=== PATIENT | female | born 2000 | race Caucasian/White ===

== ENCOUNTER 2022-12-11 09:00 | Outpatient (RCR) | payer BC, SELFPAY ==
--- NOTE | 2022-06-26 08:10 | URNOTE ---
Received request for prior auth for Infliximab ([id number]). This is approved 07/02/2022- as ordered by provider. Ref #[id number]
[2022-07-05 09:31] VITALS: BP 121/77; PULSE 105; RESP 16; TEMP 36; O2SAT 97
[2022-07-05] MEDS: METHYLPREDNISOLONE SOD SUCC 62.5 MG/ML (125) 60 MG IVP (10:30)
--- NOTE | 2022-08-15 16:54 | A.ONCPRONO_ITS ---
[facility] Provider Note Clinic Note Narrative: Treatment Plan: Infliximab Ms. Garcia follows with Dr. Marcus Patton MD of [facility], for medical management of Ulcerative Colitis. We have received orders for Ms. Garcia to continue to receive infliximab (remicade) infusions at 10mg/kg every 7 weeks. I have reviewed and signed these orders and have entered orders into a treatment plan for Ms. Garcia. Cycles are every 8 weeks, however, Ms. Garcia may receive these infusions every 7 weeks as per original orders received. Ms. Garcia's orders will need to be renewed after 11/25/22.
[2022-08-22 12:17] VITALS: BP 118/70; PULSE 102; RESP 16; TEMP 36.6; O2SAT 96
[2022-08-22] MEDS: METHYLPREDNISOLONE SOD SUCC 62.5 MG/ML (125) 60 MG IVP (12:55)
--- NOTE | 2022-11-27 09:44 | ONC.NURNOTE ---
Patricia phoned in today to set up an appt for Remicade She was due this week at home in [place], however she tested postive yesterday 11/26/22 for COVID and started Paxlovid yesterday, and was told that she needs to wait one week before receiving Remicade symptoms started 5 days ago, and she tested positive on day 4 She has a VV tomorrow with GI MD returns to [place] Thursday 11/30 Plan: Clerk Cashier requested a written release from GI to administer Remicade next week- Fri (12/04) or later, office fax given to Patricia Gomez will phone back after GI visit to set up appt
--- NOTE | 2022-12-03 09:13 | PC.NURSE ---
Addendum entered by Yelena Gonzales RN 12/04/22 08:58: [employer]er called patient following direction from Infection Prevention: Patricia Garcia- May return 10 days after symptom onset or positive test date.? May return after 12/06/2022.? Must be fever free and symptoms improved. Patient states she never had fevers, she experienced cough, back pain, fatigue, and runny nose. All symptoms are gone, but the runny nose - which has improved. Therefore patient able to be seen after 12/06/2022. Patient scheduled 12/11/2022 due to her schedule and infusion availability. Original Note: Pt called and LM asking to schedule her Remicade infusion. RN reviewed pt's chart and RN notes. Pt tested positive for COVID on 11/26/22. Delayed her Remicade infusion in [place]. Started Paxlovid 11/26/2022. Met virtually with AJAY HORTON in [place] on 11/28/2022. [facility] has not received documentation from AJAY HORTON with ok to treat. This RN called Mil MOSS today and LM asking for this documentation chico so we can get Patricia scheduled. Called pt with this update. Pt's number: [phone] Mil MOSS number: [phone] Will call pt to schedule as soon as we get permission to treat.
[2022-12-11 09:05] VITALS: BP 108/72; PULSE 95; RESP 16; TEMP 36.4; O2SAT 97
[2022-12-11] MEDS: METHYLPREDNISOLONE SOD SUCC 62.5 MG/ML (125) 60 MG IVP (09:40)
[2022-12-11] MEDS: 0.9 % SODIUM CHLORIDE 250 ml 250 ML 35 ML IV (09:40)
--- NOTE | 2022-12-27 14:03 | PC.NURSE ---
Received updated orders for Patricia's Remicade infusions. Christelle Weiner APRN reviewed orders and requested lab results from November appt. This request was called in to [facility]. This RN received a call back today stating that pt's last MD visit was virtual and that labs were ordered but never drawn. RN requested these lab orders so they could be done here prior to next infusion. Lab orders received via fax. Called pt to schedule and she stated that she, in fact, DID have labs drawn in [place] prior to coming back to [place] on 11/30/2022. RN called back and LM with Ashlee at [facility] to request the results or to call if they don't see them in their system. Will continue to follow up.
== END 2023-01-01 23:59 | disposition home or self-care (01) ==
LOC: CCIC 09:00
PROVIDERS: PCP Clinical Nurse Specialist; Referring Provider Clinical Nurse Specialist; Visit Provider Clinical Nurse Specialist
DX: K51.90 Ulcerative colitis, unspecified, without complications (principal)
CPT/HCPCS: 96376; 96413; 96415; J2930; J7050

== ENCOUNTER 2023-05-20 19:02 | Emergency (ER) | payer BC, SELFPAY ==
[2023-05-20 19:24] VITALS: BP 131/77; PULSE 109; RESP 16; TEMP 36.9; O2SAT 99; BMI 32.0
--- NOTE | 2023-05-20 21:09 | ED.GENADULT ---
HPI - General Adult General Time Seen by Provider: 21:09 Date Seen: 05/20/23 Chief complaint: Extremity Pain/Injury, Lower Stated complaint: Inflammation on legs Time Seen by Provider: 05/20/23 21:09 Source: patient and RN notes reviewed Mode of arrival: ambulatory Limitations: no limitations History of Present Illness HPI narrative: Marta is a very pleasant 22-year-old female with known ulcerative colitis, currently on Remicade infusion, history of erythema nodosum who comes to the emergency room for evaluation regarding leg pain and painful nodules on her lower extremities. Patient notes that she has had this previously but this is the most pain she has had with them. She denies any trauma to this area or any bites from her cat which she has at home. She has not had fever or chills. She denies nausea or vomiting. She has had occasional abdominal pain but no diarrhea or blood in her stools. There is no calf tenderness. She states she is rating her pain a 10/10. In the past she has had prednisone and had previously been on it from mid March until the week of April. She is unable to take oral NSAIDs but does agree she can take IV NSAIDs. Related Data Home Medications Medication Instructions Recorded Confirmed amitriptyline 50 mg tablet 50 mg PO DAILY 07/05/22 03/19/23 duloxetine 60 mg capsule,delayed 60 mg PO DAILY 07/05/22 03/19/23 release ferrous sulfate 325 mg (65 mg 325 mg PO DAILY 07/05/22 03/19/23 iron) tablet (FeroSul) norethindrone (contraceptive) 0.35 0.35 mg PO DAILY 07/05/22 03/19/23 mg tablet omeprazole 20 mg capsule,delayed 20 mg PO DAILY 07/05/22 03/19/23 release ondansetron 8 mg disintegrating 8 mg PO Q8H PRN nausea 07/05/22 03/19/23 tablet cetirizine 10 mg tablet (Aller-Brie) 10 mg PO DAILY PRN 12/11/22 03/19/23 cholecalciferol (vitamin D3) 50 50 mcg PO DAILY 12/11/22 03/19/23 mcg (2,000 unit) capsule fluticasone propionate 50 2 spray intranasal DAILY PRN 12/11/22 03/19/23 mcg/actuation nasal spray,suspension (Aller-Lorne) multivitamin 1 tab PO DAILY 12/11/22 03/19/23 acetaminophen 500 mg capsule 500 - 1,000 mg PO Q6H PRN 01/30/23 03/19/23 ibuprofen 200 mg tablet (Advil) 400 - 600 mg PO Q8H PRN 01/30/23 05/08/23 Allergies Allergy/AdvReac Type Severity Reaction Status Date / Time tree and shrub pollen Allergy Mild Verified 05/20/23 19:28 Review of Systems Status of ROS: Reports: 10 or more systems reviewed and unremarkable except as noted in History and below Const: Denies: fever or chills ENMT: Denies: throat swelling Cardio: Reports: swelling of feet/ankles; Denies: chest pain or shortness of breath with exertion Resp: Denies: shortness of breath or cough GI: Reports: abdominal pain; Denies: nausea, vomiting, diarrhea or blood in stool : Denies: painful urination Musculo: Reports: extremity pain; Denies: back pain Integ/Breast: Reports: redness, skin tenderness and skin swelling Neuro: Denies: headache Allergy/Immuno: Denies: throat swelling Exam Narrative: Exam Narrative: Marta is alert and oriented. Very intelligent and animated young woman. External ears eyes nose clear. Heart with regular rate and rhythm and lungs are clear. Abdomen soft and nontender. Examination of the lower extremity show 2 discrete areas of nodularity, erythema on the lower shins. No significant warmth to the touch. There is somewhat of a scaly surface over the large area measuring approximately 7.5 cm on the right lower carter just lateral to the tibia. On the left lower carter this area is approximately 8 cm in diameter. She is able to move her extremities. There is also areas of Band-Aids, superficial scratch on her right left foot without evidence of surrounding erythema. There is also a quarter-size bruise on her right lateral lower calf. Const: Vital Signs, click to edit/add: Vital Signs - 24 hr 05/20/23 19:24 Temperature 98.5 F Pulse Rate [Right Pulse Oximeter] 109 H Respiratory Rate 16 Blood Pressure [Ri ght Upper Arm] 131/77 Pulse Oximetry 99 Oxygen Delivery Me thod Room Air Documenting provider has reviewed patient's vital signs: yes Course Course ED Course: At this time differential diagnosis includes but is not limited to cellulitis, erythema nodosum, erythema multiforma I do believe this is erythema nodosum as patient has had this previously, has history of ulcerative colitis. At this time I would like to check baseline labs to include CBC, comprehensive panel, CRP as well as urinalysis. Patient receptive to the idea of normal saline IV with dexamethasone 4 mg and Toradol 15 mg IV. Patricia's father asked that we biopsy this area but this is not something that we would do in the emergency room. She is supposed to be set up for an appointment with her Dermatology. Will likely need to place her back on steroids.. Reevaluation(s) Reevaluation #1: Patient seems much improved after IV fluids, Toradol and dexamethasone Vital Signs Vital signs: Initial Vital Signs Temperature 98.5 F 05/20/23 19:24 Temperature Source Temporal Artery Scan 05/20/23 19:24 Pulse Rate 109 H 05/20/23 19:24 Pulse Rhythm Regular 05/20/23 19:24 Pulse Strength 3+ Normal 05/20/23 19:24 Respiratory Rate 16 05/20/23 19:24 Blood Pressure 131/77 05/20/23 19:24 Blood Pressure Mean 95 05/20/23 19:24 Blood Pressure Position Sitting 05/20/23 19:24 Pulse Oximetry 99 05/20/23 19:24 Oxygen Delivery Method Room Air 05/20/23 19:24 Vital Signs Temperature 98.5 F 05/20/23 19:24 Pulse Rate 109 H 05/20/23 19:24 Respiratory Rate 16 05/20/23 19:24 Blood Pressure 131/77 05/20/23 19:24 Pulse Oximetry 99 05/20/23 19:24 Oxygen Delivery Method Room Air 05/20/23 19:24 Temperature 98.5 F 05/20/23 19:24 Pulse Rate 109 H 05/20/23 19:24 Respiratory Rate 16 05/20/23 19:24 Blood Pressure 131/77 05/20/23 19:24 Pulse Oximetry 99 05/20/23 19:24 Oxygen Delivery Method Room Air 05/20/23 19:24 Medications Administered Medications: Discontinued Medications Generic Name Dose Route Start Last Admin Trade Name Freq PRN Reason Stop Dose Admin Dexamethasone 4 mg 05/20/23 21:24 05/20/23 21:49 Dexamethasone 4 Mg/Ml Vial IV 05/20/23 21:25 4 mg ONCE ONE Administration Sodium Chloride 1,000 mls @ 1,000 mls/hr 05/20/23 21:24 05/20/23 22:44 0.9 % Sodium Chloride 1000 Ml IV 05/20/23 22:23 Infused .Q1H JEROME Infusion Ketorolac Tromethamine 15 mg 05/20/23 21:24 05/20/23 21:49 Ketorolac 15 Mg/Ml Inj IVP 05/20/23 21:25 15 mg ONCE ONE Administration Medical Decision Making MDM Narrative Medical decision making narrative: 1. Erythema nodosum-patient has history of this in likely secondary or associated with ulcerative colitis. She is currently on Remicade every 7-8 weeks. She has been treated with prednisone in the past. She usually does a taper with that. Using previous prednisone dosing we will use 20 mg daily that she will start tomorrow. She already has this medication at home. I would have her follow-up with her GI specialist so that they can taper the dosing. She is also supposed to follow-up with dermatology. I would encourage her to get the appointment as soon as possible. I did state that we do not do biopsies here in the emergency room which her dad had requested. She is adamant that these are not in the area of where her CT has scratched her or bit her. She has no fever tonight white count is reassuring. 2. History of ulcerative colitis-no blood in stool in really no current flare at this time. 3. Disposition -home at this time. Recommend Tylenol as needed for discomfort. Recommend returning to the emergency room for worsening symptoms. Medical Records Medical records reviewed: Yes I reviewed the patient's medical records Lab Data Lab results reviewed: Yes I reviewed the patient's lab results Labs: Lab Results 05/20/23 Range/Units 21:40 WBC 9.32 (4.50-11.00) K/uL RBC 5.02 (4.00-5.20) m/uL Hgb 14.9 (12.0-16.0) gm/dL Hct 45.1 (33.0-51.0) % MCV 90 (80-100) fL MCH 30 (26-34) pg MCHC 33 (32-36) gm/dL RDW Coeff of Britta 12.3 (11.5-15.5) % Plt Count 252 (140-440) K/uL Neut % (Auto) 53.1 (42.0-72.0) % Lymph % (Auto) 36.7 (20-44) % Prairie % (Auto) 7.1 (0.0-11.0) % Eos % (Auto) 2.5 (0.0-7.0) % Baso % (Auto) 0.4 (0.0-3.0) % Neut # (Auto) 4.95 (1.7-7.0) K/uL Lymph # (Auto) 3.42 H (0.90-2.90) K/uL Prairie # (Auto) 0.70 (0.00-0.90) K/UL Eos # (Auto) 0.23 (0.00-0.50) K/uL Baso # (Auto) 0.04 (0.00-0.30) K/uL Abs Immat Gran (auto) 0.02 (0.00-0.30) K/uL Imm/Tot Granulo (auto) 0.2 % Sodium 139 (135-149) mmol/L Potassium 3.6 (3.6-5.1) mmol/L Chloride 104 (96-114) mmol/L Carbon Dioxide 25 (20-32) mmol/L Anion Gap 10 (7-15) mEq/L BUN 11 (5-24) mg/dL Creatinine 0.8 (0.5-1.5) mg/dL Estimated Creat Clear 97.57 Estimated GFR 105 ml/min Glucose 86 (60-115) mg/dL Calcium 9.1 (8.4-10.6) mg/dL Total Bilirubin 0.4 (0.1-1.5) mg/dL AST 19 (12-35) U/L ALT 10 (4-35) U/L Alkaline Phosphatase 101 (40-150) U/L C-Reactive Protein 1.0 (0.5-1.0) mg/dL Total Protein 8.0 (6.0-8.3) g/dL Albumin 4.5 (3.3-5.0) g/dL Discharge Plan Discharge Clinical Impression: Erythema nodosum Patient Disposition: Home, Self-Care Condition: Improved Additional Instructions: Start prednisone 20 mg daily tomorrow. Tylenol as needed for discomfort. Recommend follow-up with Dr. Wilcox for recheck. Return to the emergency room as needed. Prescriptions: No Action acetaminophen 500 mg capsule 500 - 1,000 mg PO Q6H PRN ibuprofen [Advil] 200 mg tablet 400 - 600 mg PO Q8H PRN amitriptyline 50 mg tablet 50 mg PO DAILY ondansetron 8 mg tablet,disintegrating 8 mg PO Q8H PRN (Reason: nausea) ferrous sulfate [FeroSul] 325 mg (65 mg iron) tablet 325 mg PO DAILY omeprazole 20 mg capsule,delayed release(DR/EC) 20 mg PO DAILY norethindrone (contraceptive) 0.35 mg tablet 0.35 mg PO DAILY duloxetine 60 mg capsule,delayed release(DR/EC) 60 mg PO DAILY cholecalciferol (vitamin D3) 50 mcg (2,000 unit) capsule 50 mcg PO DAILY multivitamin Tablet 1 tab PO DAILY fluticasone propionate [Aller-Lorne] 50 mcg/actuation spray,suspension 2 spray intranasal DAILY PRN Rx Instructions: administer into each nostril cetirizine [Aller-Brie] 10 mg tablet 10 mg PO DAILY PRN Follow Up/Referrals: Christelle Weiner APRN [Primary Care Provider] - Stand Alone [facility]: [facility] Inst[facility]
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
[2023-05-20] MEDS: dexAMETHasone 4 MG/ML VIAL IV (21:49)
[2023-05-20] MEDS: 0.9 % SODIUM CHLORIDE 1000 ml 1,000 ML IV (21:49)
[2023-05-20] MEDS: KETOROLAC 15 MG/ML inj IVP (21:49)
[2023-05-20 21:54] LABS: Basophils Absolute Auto 0.04 K/uL (0.00-0.30); Basophils Percent Auto 0.4 % (0.0-3.0); Eosinophils Absolute Auto 0.23 K/uL (0.00-0.50); Eosinophils Percent Auto 2.5 % (0.0-7.0); Hematocrit 45.1 % (33.0-51.0); Hemoglobin* 14.9 gm/dL (12.0-16.0); Immature Granulocytes Abs Auto 0.02 K/uL (0.00-0.30); Immature Granulocytes Pct Auto 0.2 %; Lymphocytes Absolute Auto 3.42 K/uL (0.90-2.90); Lymphocytes Percent Auto 36.7 % (20-44); Mean Corpuscular HGB Conc 33 gm/dL (32-36); Mean Corpuscular Hemoglobin 30 pg (26-34); Mean Corpuscular Volume 90 fL (80-100); Monocytes Percent Auto 7.1 % (0.0-11.0); Neutrophils Absolute Auto 4.95 K/uL (1.7-7.0); Neutrophils Percent Auto 53.1 % (42.0-72.0); Platelet Count* 252 K/uL (140-440); RDW Coefficient of Variation % 12.3 % (11.5-15.5); Red Blood Count 5.02 m/uL (4.00-5.20); White Blood Count* 9.32 K/uL (4.50-11.00)
[2023-05-20 21:56] LABS: Slide Review Reflex No
[2023-05-20 22:06] LABS: Albumin* 4.5 g/dL (3.3-5.0); Chloride* 104 mmol/L (96-114); Sodium* 139 mmol/L (135-149)
[2023-05-20 22:07] LABS: Potassium* 3.6 mmol/L (3.6-5.1)
[2023-05-20 22:09] LABS: Creatinine* 0.8 mg/dL (0.5-1.5); Est. Creatinine Clearance* 97.57; Estimated Glomerular Filt Rate 105 ml/min
[2023-05-20 22:10] LABS: Alanine Aminotransferase* 10 U/L (4-35); Alkaline Phosphatase* 101 U/L (40-150); Anion Gap 10 mEq/L (7-15); Aspartate Amino Transferase* 19 U/L (12-35); Bilirubin Total* 0.4 mg/dL (0.1-1.5); Blood Urea Nitrogen* 11 mg/dL (5-24); Calcium* 9.1 mg/dL (8.4-10.6); Carbon Dioxide* 25 mmol/L (20-32); Glucose* 86 mg/dL (60-115)
== END 2023-05-20 23:10 | disposition home or self-care (01) ==
PROVIDERS: Emergency Provider Family Medicine; PCP Clinical Nurse Specialist
DX: L52 Erythema nodosum (principal)
CPT/HCPCS: 36415; 80053; 85025; 86140; 96374; 96375; 99284; J1100; J1885; J7030

== ENCOUNTER 2023-06-27 13:00 | Outpatient (RCR) | payer BC, SELFPAY ==
[2023-01-30 11:20] VITALS: BP 110/72; PULSE 106; RESP 16; TEMP 36.2; O2SAT 96
[2023-01-30] MEDS: METHYLPREDNISOLONE SOD SUCC 40 MG/ML 60 MG IVP (11:45)
[2023-01-30] MEDS: 0.9 % SODIUM CHLORIDE 250 ml 250 ML 35 ML IV (11:45)
[2023-03-20 11:17] VITALS: BP 106/74; PULSE 111; RESP 16; TEMP 36.1; O2SAT 100
[2023-03-20] MEDS: METHYLPREDNISOLONE SOD SUCC 40 MG/ML 60 MG IVP (11:44)
[2023-03-20] MEDS: 0.9 % SODIUM CHLORIDE 250 ml 250 ML 35 ML IV (12:00)
[2023-05-08 09:05] VITALS: BP 110/77; PULSE 119; RESP 18; TEMP 36; O2SAT 96
[2023-05-08 09:29] LABS: Basophils Absolute Auto 0.04 K/uL (0.00-0.30); Basophils Percent Auto 0.4 % (0.0-3.0); Eosinophils Absolute Auto 0.16 K/uL (0.00-0.50); Eosinophils Percent Auto 1.5 % (0.0-7.0); Hematocrit 44.8 % (33.0-51.0); Hemoglobin* 14.8 gm/dL (12.0-16.0); Immature Granulocytes Abs Auto 0.01 K/uL (0.00-0.30); Immature Granulocytes Pct Auto 0.1 %; Lymphocytes Absolute Auto 2.32 K/uL (0.90-2.90); Lymphocytes Percent Auto 21.6 % (20-44); Mean Corpuscular HGB Conc 33 gm/dL (32-36); Mean Corpuscular Hemoglobin 30 pg (26-34); Mean Corpuscular Volume 89 fL (80-100); Monocytes Percent Auto 7.2 % (0.0-11.0); Neutrophils Absolute Auto 7.45 K/uL (1.7-7.0); Neutrophils Percent Auto 69.2 % (42.0-72.0); Platelet Count* 282 K/uL (140-440); RDW Coefficient of Variation % 12.3 % (11.5-15.5); Red Blood Count 5.02 m/uL (4.00-5.20); White Blood Count* 10.76 K/uL (4.50-11.00)
[2023-05-08] MEDS: 0.9 % SODIUM CHLORIDE 250 ml 250 ML 30 ML IV (09:40)
[2023-05-08] MEDS: METHYLPREDNISOLONE SOD SUCC 62.5 MG/ML (125) 60 MG IVP (09:40)
[2023-05-08 09:41] LABS: Slide Review Reflex No
[2023-05-08 09:42] LABS: Albumin* 4.2 g/dL (3.3-5.0); Chloride* 106 mmol/L (96-114)
[2023-05-08 09:43] LABS: Potassium* 3.9 mmol/L (3.6-5.1); Sodium* 138 mmol/L (135-149)
[2023-05-08 09:45] LABS: Alkaline Phosphatase* 120 U/L (40-150); Anion Gap 10 mEq/L (7-15); Aspartate Amino Transferase* 26 U/L (12-35); Bilirubin Total* 0.5 mg/dL (0.1-1.5); Carbon Dioxide* 22 mmol/L (20-32); Creatinine* 0.7 mg/dL (0.5-1.5); Estimated Glomerular Filt Rate 124 ml/min; Total Protein* 7.8 g/dL (6.0-8.3)
[2023-05-08 09:46] LABS: Alanine Aminotransferase* 17 U/L (4-35); Blood Urea Nitrogen* 9 mg/dL (5-24); Glucose* 103 mg/dL (60-115)
[2023-05-08 10:06] LABS: Erythrocyte SedimentationRate* 11 mm/hr (2-20)
--- NOTE | 2023-05-26 12:06 | PC.NURSE ---
Called pt today to check in after ER visit last week for LLE pain. This is not a new issue for Patricia but she states that she was in so much pain she cried which she never does as a result of physical pain. ER gave pt IV Toradol, IV steroids, and started a Prednisone burst. Pt states this will be for 5 weeks with her daily doses being 20mg, 20mg, 15mg, 10mg, 5mg then done per Dr. Wilcox. She is seeing dermatology this week on Friday. RN will call pt to check in later this week. Will also reach out to Dr. Wilcox to get ok to proceed with Remicade as scheduled on 06/27/2023. Support offered.
--- NOTE | 2023-06-17 14:17 | PC.NURSE ---
Addendum entered by Hortencia Temple RN 06/27/23 12:37: Called Dr. Wilcox's office today and spoke with an RN. Their notes reflect that Dr. Wilcox ok'd proceeding with treatment today given pt's recent issues as mentioned below. Original Note: Called pt today to check in prior to her next Remicade next week on 06/27/2023. Marta states that her skin erythema is better but still there. Marta saw a it security manager and was given a steroid injection into her leg and started on Plaquenil. She is also still on oral steroids which she states will end some time next week. RN called Dr. Wilcox to inquire about whether or not it is safe to proceed with treatment next week. Awaiting call back. Pt verbalized understanding.
[2023-06-27 13:01] VITALS: BP 109/68; PULSE 111; RESP 16; TEMP 36.9; O2SAT 95
[2023-06-27] MEDS: METHYLPREDNISOLONE SOD SUCC 62.5 MG/ML (125) 60 MG IVP (14:24)
[2023-06-27] MEDS: 0.9 % SODIUM CHLORIDE 250 ml 250 ML 50 ML IV (14:27)
[2023-06-27] MEDS: TUBING PRIMARY IV (14:46)
[2023-06-27] MEDS: INFLIXIMAB IV (14:46)
[2023-06-27] MEDS: [UNRECOGNIZED DRUG - OTHER] IV (14:46)
--- NOTE | 2023-06-27 16:32 | ONC.NURNOTE ---
Patient transferred to med/surg for remainder of infusion. Remicade infusing at 250cc/hr with 155cc left in bag. Report givenb to Diane SEARS charge nurse. Patient will need PIV out and set of ending vital signs
[2023-06-30 09:25] LABS: Infliximab Antibodies <20 ng/mL (<=19)
== END 2023-07-29 23:59 | disposition home or self-care (01) ==
LOC: CCIC 13:00
PROVIDERS: PCP Clinical Nurse Specialist; Referring Provider Clinical Nurse Specialist; Visit Provider Clinical Nurse Specialist
DX: K51.90 Ulcerative colitis, unspecified, without complications (principal)
CPT/HCPCS: 36415; 80053; 80230; 85025; 85651; 86140; 96376; 96413; 96415; J2920; J2930; J7050

== ENCOUNTER 2024-01-01 09:30 | Outpatient (RCR) | payer BC, SELFPAY ==
--- NOTE | 2023-08-12 12:00 | URNOTE ---
Addendum entered by Audra Fields RN 03/31/24 11:29: Remicade (Infliximab) (J1745). This is remains approved for [facility], provider Christelle Weiner, date range: 08/15/2023- 08/13/2024 as ordered by provider. Ref #[id number] per [facility] Rep. Guera Castaneda([phone]). Ref call#[id number] confirmed as pt has been seen since in [place], [place]. Original Note: Received request for prior auth for Remicade (Infliximab) (J1745). This is approved 08/15/2023- 08/13/2024 as ordered by provider. Ref #[id number].
[2023-08-15 10:58] VITALS: BP 105/72; PULSE 106; RESP 17; TEMP 36.9; O2SAT 97
[2023-08-15] MEDS: METHYLPREDNISOLONE SOD SUCC 62.5 MG/ML (125) 60 MG IVP (11:58)
--- NOTE | 2023-08-15 14:42 | ONC.NURNOTE ---
Based on pt's weight, discussed change in remicade dose with Christelle Weiner APRN. Pt aware and in agreement dose should be increased to 900mg based on weight.
--- NOTE | 2023-12-26 09:47 | ONC.NURNOTE ---
Pt called updating us she LM for her ordering provider's office, Dr. Jose Guadalupe Patton with [facility] and also a message for his PA. She notes their office is usually timely with their responses. Infliximab appt moved from 12/29 to 12/31 per pt request to allow for more processing time.
[2024-01-01] MEDS: METHYLPREDNISOLONE SOD SUCC 62.5 MG/ML (125) 60 MG IVP (10:25)
[2024-01-01] MEDS: 0.9 % SODIUM CHLORIDE 250 ml 250 ML 35 ML IV (10:25)
[2024-01-01 10:30] VITALS: BP 103/70; PULSE 97; RESP 16; TEMP 35.9; O2SAT 96
== END 2024-02-11 23:59 | disposition home or self-care (01) ==
LOC: CCIC 09:30
PROVIDERS: PCP Student in an Organized Health Care Education/Training Program; Referring Provider Student in an Organized Health Care Education/Training Program; Visit Provider Clinical Nurse Specialist
DX: K51.90 Ulcerative colitis, unspecified, without complications (principal)
CPT/HCPCS: 96376; 96413; 96415; J2919; J7050

== ENCOUNTER 2024-01-09 12:18 | Emergency (ER) | payer BC, SELFPAY ==
[2024-01-09 12:27] VITALS: BP 123/92; PULSE 98; RESP 16; TEMP 36.9; O2SAT 95; BMI 33.8
--- NOTE | 2024-01-09 13:00 | CRLHL7_ITS ---
For Patients: As a result of the Century Cures Act, medical imaging exams and procedure reports are released immediately into your electronic medical record. You may view this report before your referring provider. If you have questions, please contact your health care provider. INDICATION: Left lower extremity swelling and pain COMPARISON: None. TECHNIQUE: A compression venous ultrasound exam was performed of the left lower extremity using garg-scale imaging, color Doppler and spectral Doppler analysis. FINDINGS: Sonographic imaging of the left lower extremity demonstrates normal compressibility and color Doppler venous blood flow within the common femoral vein, deep femoral vein, and the proximal greater saphenous vein. Within the thigh, the femoral vein is patent and compressible. At a lower level, the popliteal and posterior tibial veins also show normal compressibility and color Doppler venous blood flow. Limited imaging of the contralateral groin demonstrates a normal spectral waveform and color Doppler venous blood flow within the right common femoral vein. IMPRESSION: Normal venous ultrasound exam. No evidence of deep vein thrombosis within the left lower extremity. Dictated by Jack Gaviria MD @ 01/09/2024 2:10:46 PM (Electronically Signed)
--- NOTE | 2024-01-09 13:02 | ED_ITS ---
HPI - General Adult General Date Seen: 01/09/24 Chief complaint: Unspecified Complaint, Adult Stated complaint: body aches, SOB upon exertion Time Seen by Provider: 01/09/24 12:20 Source: patient Mode of arrival: ambulatory Limitations: no limitations History of Present Illness HPI narrative: Patient is a 23-year-old female with history of ulcerative colitis, Adama- Danlos syndrome presenting to the emergency department for full body pain and shortness of breath with exertion. She states she symptoms higher chronic issue for her but have been worse for the past 5 days. She has been taking Tylenol at home with minimal improvement in her symptoms. She states usually this symptoms get better on their own but this episode has been lasting longer. She states at baseline she has a constant 2/10 pain and currently is a 10/10 pain. States that this pain in all her joints and she has chest pain when she takes deep breaths. She also feels like she is short of breath. She has no history of blood clots but does have a chronically swollen left lower extremity. She did sprain her ankle in that leg 2 weeks ago and last leg is more swollen than it normally is. Also states the leg is more painful than it normally is. Denies nausea, vomiting, fevers, chills, diarrhea, abdominal pain, headache, vision changes, lightheadedness, dizziness. Has had some episodes of diaphoresis. Is feeling fatigued. States she has been able to sleep much. Related Data Home Medications ?Medication ?Instructions ?Recorded ?Confirmed amitriptyline 50 mg tablet 50 mg PO DAILY 07/05/22 01/01/24 duloxetine 60 mg capsule,delayed 90 mg PO DAILY 07/05/22 01/01/24 release ferrous sulfate 325 mg (65 mg 325 mg PO DAILY 07/05/22 01/01/24 iron) tablet (FeroSul) norethindrone (contraceptive) 0.35 0.35 mg PO DAILY 07/05/22 01/01/24 mg tablet omeprazole 20 mg capsule,delayed 20 mg PO DAILY 07/05/22 01/01/24 release ondansetron 8 mg disintegrating 8 mg PO Q8H PRN nausea 07/05/22 01/01/24 tablet cetirizine 10 mg tablet (Aller-Brie) 10 mg PO DAILY PRN 12/11/22 01/01/24 cholecalciferol (vitamin D3) 50 50 mcg PO DAILY 12/11/22 01/01/24 mcg (2,000 unit) capsule fluticasone propionate 50 2 spray intranasal DAILY PRN 12/11/22 01/01/24 mcg/actuation nasal spray,suspension (Aller-Lorne) multivitamin 1 tab PO DAILY 12/11/22 01/01/24 acetaminophen 500 mg capsule 500 - 1,000 mg PO Q6H PRN 01/30/23 01/01/24 infliximab IV .[id number] 06/25/23 07/11/23 guaifenesin 600 mg tablet, 600 mg PO Q12H PRN 06/27/23 01/01/24 extended release 12 hr (Mucinex) thc 01/01/24 Allergies Allergy/AdvReac Type Severity Reaction Status Date / Time tree and shrub pollen Allergy Mild Verified 01/09/24 15:37 Review of Systems Status of ROS: Reports: 10 or more systems reviewed and unremarkable except as noted in History and below PFSH [facility] Social History Smoking Status: Never smoker How often do you have a drink containing alcohol: never AUDIT-C Alcohol total score: 0 Non-prescribed substance use: marijuana (any form) Exam Narrative: Exam Narrative: Const: Well-nourished, Well-developed, in mild distress Eyes: PERRL, no conjunctival injection, and symmetrical lids HENT: Atraumatic external nose and ears. Moist mucous membranes. Neck: Symmetric, trachea midline, No thyromegaly. CVS: RRR, No murmurs or gallops. RESP: Unlabored respiratory effort. Clear to auscultation bilaterally. GI: Nontender/Nondistended, No rebound or guarding. Extremities: Left leg slightly more swollen than the right leg with tenderness to the left calf. No pitting edema. Peripheral pulses 2+ and equal in all e xtremities MSK:Extremities w/o deformity, Normal Active ROM Skin: Warm, Dry. No rashes or lesions. Neuro: Normal Muscle tone, No focal neurological deficits. Psych: Awake, Alert, & Oriented x3. Appropriate mood and affect. Const: Vital Signs, click to edit/add: Vital Signs - 24 hr 01/09/24 12:27 Temperature 98.5 F Pulse Rate [Pulse Oximeter] 98 Respiratory Rate 16 Blood Pressure [Ri ght Upper Arm] 123/92 H Pulse Oximetry 95 Oxygen Delivery Me thod Room Air Course Vital Signs Vital signs: Initial Vital Signs Temperature 98.5 F 01/09/24 12:27 Temperature Source Temporal Artery Scan 01/09/24 12:27 Pulse Rate 98 01/09/24 12:27 Respiratory Rate 16 01/09/24 12:27 Blood Pressure 123/92 H 01/09/24 12:27 Blood Pressure Mean 102 01/09/24 12:27 Blood Pressure Position High-Fowlers 01/09/24 12:27 Pulse Oximetry 95 01/09/24 12:27 Oxygen Delivery Method Room Air 01/09/24 12:27 Vital Signs Temperature 98.5 F 01/09/24 12:27 Pulse Rate 98 01/09/24 12:27 Respiratory Rate 16 01/09/24 12:27 Blood Pressure 123/92 H 01/09/24 12:27 Pulse Oximetry 95 01/09/24 12:27 Oxygen Delivery Method Room Air 01/09/24 12:27 Temperature 98.5 F 01/09/24 12:27 Pulse Rate 98 01/09/24 12:27 Respiratory Rate 16 01/09/24 12:27 Blood Pressure 123/92 H 01/09/24 12:27 Pulse Oximetry 95 01/09/24 12:27 Oxygen Delivery Method Room Air 01/09/24 12:27 Medications Administered Medications: Discontinued Medications Generic Name Dose Route Start Last Admin Trade Name Vinceq PRN Reason Stop Dose Admin Morphine Sulfate 4 mg 01/09/24 13:00 01/09/24 13:31 Morphine 4 Mg/Ml Inj IVP 01/09/24 13:01 4 mg ONCE ONE Administration Ondansetron HCl 4 mg 01/09/24 15:03 01/09/24 15:06 Ondansetron 2 Mg/Ml Inj IVP 01/09/24 15:04 4 mg ONCE ONE Administration Medical Decision Making MDM Narrative Medical decision making narrative: Patient is on 23-year-old female presenting for body aches and shortness of breath. She does have some mild swelling to the left lower extremity which would have some concerns for a blood clot as she also has recently sprained that ankle. Does have some mild discomfort with deep breath surgical thoughts about possible PE the D-dimer will be ordered. Will also order EKG, troponin look for signs of ACS. CBC and BMP to look for electrolyte abnormalities or other signs of infection. Also ordered COVID and flu test. Was also given morphine for pain. Feeling better after the morphine. Ultrasound returned showing no signs of a blood clot. CBC, BMP, COVID/flu, troponin, EKG also shows no concerning findings. Her D-dimer was elevated at 10.8. She does have a few inflammatory disease at baseline and that might cause the D-dimer to be elevated based either way I will do a CTA to look for signs of a PE. CT results showed no obvious signs of PE. There was a timing issue with the contrast to the very distal and is cannot definitively rule out PE at this time for considered she is otherwise doing well at this time I am not concerned. She will be discharged she is agreeable with this plan. She states she is going to follow up with her primary care provider. Lab Data Labs: Lab Results 01/09/24 01/09/24 Range/Units 13:00 13:20 WBC 8.09 (4.50-11.00) K/uL RBC 5.07 (4.00-5.20) m/uL Hgb 14.8 (12.0-16.0) gm/dL Hct 44.9 (33.0-51.0) % MCV 89 (80-100) fL MCH 29 (26-34) pg MCHC 33 (32-36) gm/dL RDW Coeff of Britta 12.6 (11.5-15.5) % Plt Count 242 (140-440) K/uL Neut % (Auto) 56.8 (42.0-72.0) % Lymph % (Auto) 35.2 (20-44) % [place] % (Auto) 5.7 (0.0-11.0) % Eos % (Auto) 1.7 (0.0-7.0) % Baso % (Auto) 0.4 (0.0-3.0) % Neut # (Auto) 4.59 (1.7-7.0) K/uL Lymph # (Auto) 2.85 (0.90-2.90) K/uL [place] # (Auto) 0.50 (0.00-0.90) K/UL Eos # (Auto) 0.14 (0.00-0.50) K/uL Baso # (Auto) 0.03 (0.00-0.30) K/uL Abs Immat Gran (auto) 0.02 (0.00-0.30) K/uL Imm/Tot Granulo (auto) 0.2 % D-Dimer Quant (PE/DVT) 10.80 H (0.00-0.50) ug/ml Sodium 136 (135-149) mmol/L Potassium 4.0 (3.6-5.1) mmol/L Chloride 105 (96-114) mmol/L Carbon Dioxide 20 (20-32) mmol/L Anion Gap 11 (7-15) mEq/L BUN 12 (5-24) mg/dL Creatinine 0.7 (0.5-1.5) mg/dL Estimated Creat Clear 110.55 Estimated GFR 123 ml/min Glucose 88 (60-115) mg/dL Calcium 9.2 (8.4-10.6) mg/dL Magnesium 2.1 (1.5-2.6) mg/dL HCG, Qual Negative (Negative) SARS-CoV-2 (PCR) Negative SARS-CoV-2 (Negative) Influenza Type A (PCR) Negative PCR FLU A (Negative) Influenza Type B (PCR) Negative PCR FLU B (Negative) POC Troponin I 0.00 L (0.01-0.04) ng/ml Imaging Data Venous US: Attestation: I have reviewed the pertinent imaging results. Radiologist's impression: Normal venous ultrasound exam. No evidence of deep vein thrombosis within the left lower extremity. Dictated by Jack Gaviria MD @ 01/09/2024 2:10:46 PM CTA chest: Attestation: I have reviewed the pertinent imaging results. Radiologist's impression: 1. Examination of the pulmonary arteries is somewhat limited secondary to contrast bolus timing. No central pulmonary embolism. Regions of decreased attenuation in the distal segmental and subsegmental pulmonary arteries of the lower lobes are favored to represent contrast mixing artifact, and much less likely small PEs, although small PEs can not entirely be excluded. 2. Solid pulmonary nodules in the right upper lobe measuring up to [address] chest in 3-6 months. Please note that all CT scans at this facility use dose modulation, iterative reconstruction, and/or weight-based dosing when appropriate to reduce radiation dose to as low as reasonably achievable. Dictated by Magdi Aponte MD @ 01/09/2024 4:04:35 PM ECG Data Attestation: I personally reviewed and interpreted this ECG as follows: Prior ECG tracings: not available for review Interpretation: Normal sinus rhythm with rate of 97 beats per minute, normal intervals, normal axis, no ST or T-wave abnormalities Discharge Plan Discharge Clinical Impression: Arthralgia Qualifiers: Joint pain location: unspecified Qualified Code(s): M25.50 - Pain in unspecified joint Patient Disposition: Home, Self-Care Condition: Improved Instructions: Arthralgia (ED) Additional Instructions: I do not see any concerning abnormalities on your lab work or imaging. There was a small solid pulmonary nodule in the right upper lobe is recommended you follow-up in 3-6 months with your primary care provider about this. Return to emergency department for new worsening symptoms. Prescriptions: No Action infliximab [Remicade] IV .[id number] acetaminophen 500 mg capsule 500 - 1,000 mg PO Q6H PRN guaifenesin [Mucinex] 600 mg tablet extended release 12hr 600 mg PO Q12H PRN thc Patient Comments: 5mg as needed amitriptyline 50 mg tablet 50 mg PO DAILY ondansetron 8 mg tablet,disintegrating 8 mg PO Q8H PRN (Reason: nausea) ferrous sulfate [FeroSul] 325 mg (65 mg iron) tablet 325 mg PO DAILY omeprazole 20 mg capsule,delayed release(DR/EC) 20 mg PO DAILY norethindrone (contraceptive) 0.35 mg tablet 0.35 mg PO DAILY duloxetine 60 mg capsule,delayed release(DR/EC) 90 mg PO DAILY cholecalciferol (vitamin D3) 50 mcg (2,000 unit) capsule 50 mcg PO DAILY multivitamin Tablet 1 tab PO DAILY fluticasone propionate [Aller-Lorne] 50 mcg/actuation spray,suspension 2 spray intranasal DAILY PRN Rx Instructions: administer into each nostril cetirizine [Aller-Brie] 10 mg tablet 10 mg PO DAILY PRN Follow Up/Referrals: Linda Shah MD [Primary Care Provider] - Stand Alone [facility]
--- OUTSIDE RECORDS SUMMARY | 2024-01-09 13:09 | XMS_ITS | Encounter Summary ---
Author Organization [facility] Address [address] [place] [address] Care Team Providers Care Science Job Titles Name Role Phone Cheryl Rodríguez MD Primary Care Provider [phone] Reason for Visit * Reason Comments Annual Exam Patient has no arlen rns. Patient needs refill on BC Encounter Details Date Type Department Care Team (Late st Contact Info) Description 11/27/2023 8:10 AM EDT Office Visit [facility] OB-INFRASTRUCTURE ARCHITECT [address] [place] [id number] Miya Ortiz, [address] [place] [address] Encounter for gynecological examination (general) (routine) without abnormal findings (Primary Dx); Special screening examination for human papillomavirus (HPV); Encounter for surveillance of contraceptive pills Social History Tobacco Use Types Packs/Day Years Used Date Smoking Tobacco: Never Smokeless Tobacco: Never Alcohol Use Standard Drinks/Week Comments Yes 0 (1 standard drink = 0.6 oz pure alcohol) Hard Cider and Wine 0-2 glasses a month Sex and Gender Information Value Date Recorded Sex Assigned at Female 03/02/2019 2:51 PM EST Gender Identity Female 03/02/2019 2:51 PM EST Sexual Orientation Bisexual 12/01/2020 8: 02 AM EDT documented as of this encounter Last Filed Vital Signs Vital Sign Reading Time Taken Comments Blood Pressure 120/80 11/27/2023 8:15 AM EDT Pulse - - Temperature - - Respiratory Rate - - Oxygen Saturation - - Inhaled Oxygen Concentration - - Weight 91 kg (200 lb 9.6 oz) 11/27/2023 8:15 AM EDT Height 165.1 cm (5' 5) 11/27/2023 8:15 AM EDT Body Mass Index 33.38 11/27/2023 8:15 AM EDT documented in this encounter Functional Status Functional Status Response Date of Assess ment Are you deaf or do you have serious difficulty h earing? No 11/27/2020 Are you blind or do you have serious difficulty seeing, even when wearing glasses? No 11/27/2020 Do you have serious difficul ty walking or climbing stairs? (5 years or older) No 11/27/2020 Do you have difficulty dress ing or bathing? (5 years or older) No 11/27/2020 Because of a physical, menta l, or emotional condition, do you have difficulty doing errands alone such as visiting a doctor's office or shopping? (15 years old or older) No 11/27/2020 Cognitive Status Response Date of Assessm ent Because of a physical, menta l or emotional condition, do you have serious difficulty concentrating, remembering, or making decisions? (5 years or older) No 11/27/2020 documented as of this encounter Progress Notes * Miya Ortiz, DO - 11/27/2023 8:10 AM EDT Images from the original note were not included. Name: Patricia Garcia [facility]#: [id number] Subjective: Patricia Garcia is a 23 y.o. female. Chief Complaint Patient presents with Annual Exam Patient has no concerns. Patient needs refill on [facility] Annual exam. No acute INFRASTRUCTURE ARCHITECT concerns or complaints. Doing well on Micronor. Review of Systems Constitutional: no fatigue, no fever, no significant weight gain, no significant weight loss Skin: no abnormal moles, no rashes Respiratory: no dyspnea, no cough, no sputum production, no hemoptysis, no wheezing Cardiovascular: no chest pain, no palpitations, no orthopnea Gastrointestinal: no heartburn, no nausea, no vomiting, no abdominal pain, no diarrhea, no constipation, no rectal bleeding Genitourinary: no hematuria, no abnormal bleeding, no flank pain, no dysuria, no discharge, no pelvic pain Menstrual: no menstrual problems, no PMDD symptoms Menopausal: no hot flashes, no night sweats, no vaginal dryness, no memory impairment, no insomnia,no mood swings Sexual: no decreased libido, no orgasmic dysfunction, no dyspareunia, no vaginismus Musculoskeletal: no muscle aches, no muscle weakness, no arthralgias/joint pain, no back pain Neurologic: h/o migraine w/ aura, no dizziness, no numbness, no seizures Psychiatric: no depression and/or anxiety Objective: Vitals: 11/27/23 0815 BP: 120/80 Weight: 200 lb 9.6 oz (91 kg) Height: 5' 5 (1.651 m) Past Medical History: Diagnosis Date Allergy Anxiety 2015 On Elavil through GI at [facility] (doctor miller) Arthritis Bilateral knee pain Depression Fracture Iron deficiency anemia due to chronic blood loss 08/16/2011 Patient reports history of iron deficiency anemia around age 10 when she had UC flare. She requirediron infusions. Migraine headache with aura 04/2022 Osteomyelitis (HCC) [facility] Ulcerative colitis (HCC) 2009 Outpatient Medications Marked as Taking for the 11/27/23 encounter (Office Visit) with Miya Ortiz, Medication Sig Dispense Refill amitriptyline (ELAVIL) 100 mg tablet Cetirizine 10 mg Cap Take by mouth. cholecalciferol (VITAMIN D3) 1,000 unit Tab tablet Take 1 tablet (1,000 Units total) by mouth daily cranberry fruit extract (CRANBERRY CONCENTRATE PO) Take by mouth. 2 caps per day DULoxetine (CYMBALTA) 30 mg delayed-release capsule Take 1 capsule (30 mg total) by mouth daily Taking with 60 mg every day for 90 mg 90 capsule 1 DULoxetine (CYMBALTA) 60 mg delayed-release capsule Take 1 capsule (60 mg total) by mouth daily [id number] days 90 capsule 1 ferrous sulfate (FEOSOL) 325 mg (65 mg iron) tablet Take 1 tablet (325 mg total) by mouth daily 90 tablet 3 fluticasone propionate (FLONASE NA) into nostril(s). inFLIXimab (REMICADE) 100 mg injection Inject 10 mg/kg into the vein once. melatonin 3 mg Tab tablet Take 5 mg by mouth at bedtime. methylPREDNISolone sodium succinate, PF, (SOLU-MEDROL) 125 mg/2 mL SolR injection Inject 2 mLs (125mg total) into the vein As instructed per package directions [id number] with Remicade infusion multivitamin (THERAGRAN) tablet Take 1 tablet by mouth daily [DISCONTINUED] norethindrone (MICRONOR) 0.35 mg tablet Take 1 tablet (0.35 mg total) by mouth daily. 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 Constitutional: healthy appearing, well nourished, well developed, BMI - obese (BMI > or equal to 30.0 Kg/m2 Psychiatric: oriented to time/place/person, active and alert, normal mood/affect Skin: no rashes, no lesions Abdomen: soft, no distention, no tenderness, no masses, no CVA tenderness Hernia: no hernia palpated Breast: no skin changes, no abnormal nipple discharge, normal nipple appearance, no tenderness, no masses Female Genitalia: Vulva: no masses, no atrophy, no lesions Bladder/Urethra: normal meatus, no urethral discharge, no urethral mass, no bladder distention Vagina: no tenderness, no erythema, no abnormal discharge, no vesicles/ulcers, no cystocele, no rectocele, no atrophy Cervix: grossly normal, no discharge, no cervical motion tenderness, not friable Uterus: normal size, normal shape, midline, mobile, no tenderness, no prolapse Adnexa: no tenderness, no mass Lymph Nodes: no tender axillary LN, no tender inguinal LN Musculoskeletal: no calf tenderness, no significant edema Assessment: ICD-10-CM 1. Encounter for gynecological examination (general) (routine) without abnormal findings Z01.419 PAP IG W/RFL HPV all PATH 2. Special screening examination for human papillomavirus (HPV) Z11.51 PAP IG W/RFL HPV all PATH 3. Encounter for surveillance of contraceptive pills Z30.41 norethindrone (MICRONOR) 0.35 mg tablet Plan/Discussion: -Annual with Pap -Refill Micronor Electronically signed: Miya Ortiz DO 11/27/2023 The patient was offered an After Visit Summary sheet that lists all of their medications with directions, their allergies, orders placed during this encounter, immunization dates, and follow-up instructions The patient was educated on things to look for in case of need to seek immediate medical attention,especially if symptoms persist or worsen despite treatment, will need re-evaluation I reconciled the patient's medication list and prepared and supplied needed refills I have reviewed the past medical, family, and social history sections including the medications andallergies listed in the above medical record All pertinent side effects, risks, benefits and precautions of suggested treatments were discussed in detail. The patient indicates understanding of these issues and agrees with the above treatment plan * Rasheed Emmanuel LPN - 11/27/2023 8:10 AM EDT Patient aware and has diflucan at home she will take documented in this encounter Plan of Treatment Not on file documented as of this encounter Goals Goal Patient Goal Type Associated Problems Recent Progress Patient-Stated? Author Monitor your weight Weight No change( 024 8:07 AM EDT) Yes Sunshine Russ, ORION Note: Maintain current weight documented as of this encounter Procedures Procedure Name Priority Date/Time Associated Diagnosis Comments PAP IG W/RFL TO HPV ALL PATH Routine 11/27/2023 9:17 AM EDT Encounter for gynecological examination (general) (routine) without abnormal findings Special screening examination for human papillomavirus (HPV) documented in this encounter Results * PAP IG W/RFL HPV all PATH (11/27/2023 9:17 AM EDT) MIGUELOSIS,PAP Comment [facility] 1 Comment: NEGATIVE FOR INTRAEPITHELIAL LESION OR MALIGNANCY. FUNGAL ORGANISMS MORPHOLOGICALLY CONSISTENT WITH LISBETH SPECIES ARE PRESENT. THIS SPECIMEN WAS RESCREENED PART OF OUR [employer] EXCHANGE ARCHITECT PROGRAM. Specimen adequacy: Comment [facility] 1 Comment: Satisfactory for evaluation. ??Endocervical and/or squamous metaplastic cells (endocervical component) are present. Clinician Provided ICD-10 Comment [facility] 1 Comment: Z01.419 Z11.51 Performed by: Comment [facility] 2 Comment:Letha Mcmahon, Cyto technologist (ASCP) QC reviewed by: Comment [facility] 1 Comment:Viry Devine, Cy totechnologist . . [facility] 1 Note: Comment [facility] 1 Comment: The Pap smear is a screening test designed to aid in the detection of premalignant and malignant conditions of the uterine cervix. ??It is not a diagnostic procedure and should not be used as the sole means of detecting cervical cancer. ??Both false-positive and false-negative reports do occur. Methodology Comment [facility] 1 Comment: This liquid based ThinPrep(R) pap test was screened with the use of an image guided system. . Comment [facility] 1 Comment: The HPV DNA reflex criteria were not met with this specimen result therefore, no HPV testing was performed. Performed At: 01 [facility] [address] [facility] [place] ??[id number] Geoffrey Meza MD [id number] Performed At: [address] [place] ??[id number] Moira Lloyd PhD [id number] Swab SPECIMEN FROM CERVIX OR VAGINA / Unknown 11/27/2023 9:17 AM EDT 11/27/2023 Narrative [facility] - 12/02/2023 3:07 PM EDT Specimen Comment: Source.............Cervix Specimen Comment: No. of containers..01 ThinPrep Vial Miya Ortiz DO LAB REFERENCE O RDERABLES [facility] 1 [facility] 2 documented in this encounter Visit Diagnoses Diagnosis Encounter for gynecological examination (general) (routine) without abnormal findings- Primary Special screening examination for human papillomavirus (HPV) Encounter for surveillance of contraceptive pills Surveillance of previously prescribed contraceptive pill documented in this encounter Care Teams Science Job Titles Relationship Specialty Start Date End Date Cheryl Rodríguez MD [address] [address] PCP - General Family Medicine 10/25/23 documented as of this encounter
--- OUTSIDE RECORDS SUMMARY | 2024-01-09 13:09 | XMS_ITS | Clinical Summary ---
Author Organization [facility] Address [address] [place] [address] Care Team Providers Care Piping Supervisor Name Role Phone Cheryl Rodríguez MD Primary Care Provider [phone] Allergies No known active allergies Medications Medication Sig Dispensed Refills Start Date End Date Status inFLIXimab (REMICADE) 100 mg injection Inject 10 mg/kg into the vein once. Active cholecalciferol (VITAMIN D3) 1,000 unit Tab tablet Take 1 tablet (1,000 Units total) by mouth daily Active omeprazole (PRILOSEC) 20 mg delayed-release capsule Take 1 capsule (20 mg total) by mouth daily Active Cetirizine 10 mg Cap Take by mouth. Active polyethylene glycol (MIRALAX) 17 gram/dose oral powder Take 17 g by mouth daily Active melatonin 3 mg Tab tablet Take 5 mg by mouth at bedtime. Active methylPREDNISolone sodium succinate, PF, (SOLU-MEDROL) 125 mg/2 mL SolR injection Inject 2 mLs (125 mg total) into the vein As instructed per package directions [id number] with Remicade infusion Active fluticasone propionate (FLONASE NA) into nostril(s). Active cranberry fruit extract (CRANBERRY CONCENTRATE PO) Take by mouth. 2 caps per day Active ondansetron (ZOFRAN-ODT) 8 mg disintegrating tablet DISSOLVE 1 TABLET IN MOUTH EVERY EIGHT HOURS NEEDED FOR NAUSEA 03/27/2022 Active multivitamin (THERAGRAN) tablet Take 1 tablet by mouth daily Active sodium chloride-aloe vera (AYR SALINE)Indications:S inus problem 1 Application into nostril(s) as needed 14.1 g 2 08/05/2023 Active ferrous sulfate (FEOSOL) 325 mg (65 mg iron) tabletIndications:Lo w ferritin Take 1 tablet (325 mg total) by mouth daily 90 tablet 3 08/05/2023 5 Active DULoxetine (CYMBALTA) 60 mg delayed-release capsuleIndications:A nxiety and depression Take 1 capsule (60 mg total) by mouth daily for 180 days 90 capsule 1 08/05/2023 4 Active amitriptyline (ELAVIL) 100 mg tablet 07/18/2023 Active DULoxetine (CYMBALTA) 30 mg delayed-release capsuleIndications:A nxiety and depression Take 1 capsule (30 mg total) by mouth daily Taking with 60 mg every day for 90 mg 90 capsule 1 08/05/2023 Active norethindrone (MICRONOR) 0.35 mg tabletIndications:En counter for surveillance of contraceptive pills Take 1 tablet (0.35 mg total) by mouth daily 84 tablet 4 11/27/2023 Active Active Problems Problem Noted Date Diagnosed Date Low vitamin B12 level 12/03/2022 Overview (12/03/2022): Dx: 11/2022. B12 275. Takes MV with omeprazole. No n/t, CP, SOB. Assessment & Plan (12/03/2022 9:49 PM EDT): Patient is going to try MV from omeprazole. Will recheck labs prior to follow up. Sinus problem 12/03/2022 Overview (12/03/2022): Every time she gets a cold for the past year her sinuses are ripped up. It takes months to heal. Has constant dry painful sinuses. Gets nosebleeds regularly every time she gets sick. Tries to fix it and then gets sick again. Mostly her left nostril is bothering her. It hurts when her left nostril flares due to scabbing. Has tried neosporin on this but it only helps a little bit. Sometimes gets clear fluid from the scabbed areas. Nosebleeds don't last long. Had COVID recently for the third time. The first time she had it in 2019 she was very sick. The second time was more congestion, cough. Right now has stuffy nose but overall doing better than before. She was able to get Paxlovid. Assessment & Plan (12/03/2022 9:47 PM EDT): Patient with ongoing sinus pain, scabbing, nosebleeds. Discussed need for evaluation with ENT. Will check with [facility] near her school) to see where to send referral for an ENT evaluation. Will try Macclenny gel saline for now. Second degree hemorrhoids 06/04/2022 Tinnitus of both ears 08/31/2021 Overview (08/31/2021): Had ear infections a lot growing up. Right TM ruptured in 2014. Has had chronic tinnitus for most of her life. She has it all the time but some days are more intense. Has not seen ENT. Had a hearing check at school in the past which was fine in high school. Wore ear plugs in band. No trouble hearing. FHx+ tinnitus in mom Assessment & Plan (08/31/2021 10:05 AM EDT): Will refer to ENT for further evaluation and treatment. 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 Rios. Didn't have good [...] skipped a period in August from stress. Assessment & Plan (12/04/2021 11:23 AM EDT): Patient advised to stop using ibuprofen. Referral sent to a different aviation maintenance instructor at this point for her to follow-up. Assessment & Plan (08/31/2021 10:06 AM EDT): Patient with history of polyarthralgia that may be related to EDS, autoimmune disease, and/or multifactorial. She continues to have ongoing aches and pains as well as joint instability related to EDS. She previously saw rheumatology and it appears that she was supposed to get autoimmune labs completed, I do not see the results of these. Referral placed to rheumatology. We will need to discuss polyarthralgia further at future office visit. Palpitations 05/25/2021 Overview (12/04/2021): Patient has concern for POTS and would like to see cardiology. Has had some abnormal heart rates with Apple watch with positional changes and feels dizzy and palpitations. Has had some SOB. No CP. One episode this summer where she stood up too quickly and almost fell over from fainting. Has not had this in a long time. Drank more water and salt intake and felt better. [place]. Still gets some little bouts of dizziness laying in bed for 30 seconds or so. Assessment & Plan (12/04/2021 11:25 AM EDT): Advised patient to follow-up with cardiology. Assessment & Plan (05/25/2021 8:58 AM EST): Referral placed today. Attention deficit hyperactivity disorder 022 Noninfective enterocolitis 05/21/2021 COVID-19 05/21/2021 Overview (05/25/2021): Dx: 05/09/2021. Her stepdad tested positive the Friday before she tested positive. Her mom tested positive on 05/07/2021. Patient tested positive again on Friday. She has had cough, congestion, and slight dizziness. She still has cough congestion and a slight CONDON with fatigue. Had sore throat, dizziness, nausea at one point. Overall feeling better. No fevers/chills. She is UTD on COVID along with booster. Assessment & Plan (05/25/2021 8:56 AM EST): Patient with recent COVID-19 infection. She is doing better at this time. We will continue to monitor for now. Low ferritin 04/18/2021 Overview (12/03/2022): Interval HPI: Takes all of her medication [...] heavy or painful. No blood in BMs. Assessment & Plan (12/03/2022 11:18 AM EDT): Patient is going to adjust her regimen to split dosing from omeprazole and taking feosol consistently. Assessment & Plan (05/25/2021 8:56 AM EST): Patient is agreeable to start iron for low ferritin. We will start this. Discussed can be constipating and cause GI upset. Anxiety and depression 02/20/2021 Overview (06/05/2022): Interval HPI: Cymbalta 60mg daily is helping her mood and aches and pains. Has not needed ibuprofen. School is going well. She's a little behind from not understanding the syllabus correctly so she's playing catch up. She's doing 4H. Has moved to [place] for school. She has a medical single [...] - caused worsening joint aches and pains Assessment & Plan (06/05/2022 4:51 PM EST): Patient doing well on Cymbalta 60 mg daily. This has helped her mood, and aches and pains. We will continue this. Assessment & Plan (08/31/2021 10:04 AM EDT): Patient with history of anxiety and recently diagnosed depression. It does appear that worsening joint pain was related to Wellbutrin although she does continue to have polyarthralgia. She is doing well on Cymbalta and excited about the new dose 40 mg daily that was started about 10 days ago. No issues with the new dose. No changes to medication at this time, will continue Cymbalta 40 mg daily and plan to follow-up in about 6 to 8 weeks or sooner as needed. Assessment & Plan (05/25/2021 8:56 AM EST): Patient with history of anxiety and recently diagnosed depression. Although she did have improvement with Wellbutrin, she has been having a lot of joint pain since starting this. We discussed that joint pain may be related to this medication or given her other autoimmune issues, may be a new problem. We will start Cymbalta 30 mg daily instead. Discussed that this may not help with her attention deficit issues. Reviewed potential adverse effects including but not limited to weight loss, GI upset, decreased appetite, drowsiness, fatigue, worsening mood, suicidality. Follow-up closely in about 6 weeks or sooner as needed. Assessment & Plan (02/20/2021 4:33 PM EST): Patient with history of anxiety, diagnosed today with depression. She feels that there is a seasonal component to this. She would like to start medication. Her mother takes Wellbutrin and she is interested in this medication in particular. We will start bupropion XL 150 mg daily. Reviewed potential adverse effects including but not limited to worsening mood, tachycardia, dizziness, palpitations, GI upset, nausea. Follow-up in 6 to 8 weeks or sooner as needed. Erythema nodosum 02/19/2021 Vitamin D deficiency 02/19/2021 Overview (06/05/2022): Diagnosed in the past. Taking 2000IU vit D daily. Assessment & Plan (06/05/2022 4:51 PM EST): Since patient has moved to [place], she would like to increase her vitamin D. Okay to double up to 4000 IU daily during winter. Assessment & Plan (05/25/2021 8:59 AM EST): Reviewed labs. Continue 1000 IU daily vitamin D. Cellulitis of left lower extremity 09/21/2020 Overview (09/21/2020): Started as an ingrown leg hair in left thigh about 4 weeks ago. She plucked the hair out, cleaned with alcohol, put Neosporin on it and a band aid. It continued to be like an inflamed pimple. She has been cleaning it with alcohol and putting Neosporin on it. The last time she cleaned it yesterday she used soap and water and then applied Neosporin and then a band aid. She has drained it a few times by popping it. Yesterday was a scant teaspoon amount of pus with thick yellow bloody discharge. One time she drained it it looked a lot better for four days, but otherwise has continued to fester. The spot is painful like a needle poked in it 1-2/10 pain with walking. No radiation of pain. She is on Remicade for UC. -CP, SOB, n/v, f/c, HAs, dizziness, bloody stools. Assessment & Plan (09/21/2020 1:01 PM EDT): Patient on Remicade with cellulitis of left thigh. This has not been improving after several weeks of home measures. There appears to be a small blister overlying the cellulitis, does not appear to be an abscess at this time. Will try Bactrim twice daily for 10 days. Discussed potential adverse effects including but not limited to GI upset, nausea, rash. Okay to take with food. She is going to take yogurt with this. Reviewed return to office/ED precautions including but not limited to fluctuance, worsening erythema, fevers, chills, nausea, vomiting. Follow-up if not improving. Advised not to use alcohol on this lesion or Neosporin as neomycin can inhibit wound healing. 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 About 2 years ago, received 2 infusions of pamidronate with a good response for bone swelling. Assessment & Plan (08/31/2021 10:07 AM EDT): Will need to review further and discuss further at future office visit. Migraine with aura 07/14/2015 Backache 02/02/2013 Ulcerative colitis 06/25/2011 Overview (12/04/2021): Has been on Remicade from [facility] Dr. Patton for UC. Gets Remicade every 7 weeks. Gets it with solumedrol to help prevent erythema. Follows up with GI every 6 months. No bowel issues at this time. Advised to avoid NSAIDs. Had benign colonoscopy 10/16/2021. R3Y. Assessment & Plan (06/05/2022 4:53 PM EST): GI referral to Dr. Wilcox local to patient confirmed that this has gone through. Assessment & Plan (12/04/2021 11:25 AM EDT): Results reviewed. Assessment & Plan (08/31/2021 10:07 AM EDT): We will need to discuss this further and review history at future office visit. Resolved Problems Problem Noted Date Diagnosed Date Resolved Date Calculus of kidney 12/01/2020 Overview (12/01/2020): Left mid/proximal 4 mm Assessment & Plan (12/22/2020 12:34 PM EDT): Likely passed, no pain and KUB negative First stone -> no metabolic workup Assessment & Plan (12/01/2020 1:03 PM EDT): There is a stone in the urinary tract. Treatment options including: observation, medical expulsive therapy (MET), extracorporeal shockwave lithotripsy (ESWL), ureteroscopy with laser lithotripsy (CRULLS), and percutaneous nephrolithotomy (PCNL). Each procedure, along with the risks and benefits, was discussed in clinic with increasing effectiveness down the list but also increasing invasiveness. Standard workup includes ordering or reviewing: CT abdomen/pelvis KUB - to evaluate for radiolucency UA After reviewing the options the patient would like to proceed with: *Medical expulsive therapy - with tamsulosin and pain medication. Tamsulosin has a rapid onset and involves relaxing the sphincter at the bladder neck. A prescription was given and the common side effects explained: lightheadedness/headache, abnormal ejaculation, sinus inflammation, seizure exacerbation, and cataract surgery issues. The patient will continue with pain medications and understands they cannot drive or operate heavy machinery while tacking this medication. Hydronephrosis with urinary obstruction due to ureteral calculus 12/01/2020 12/22/2020 Assessment & Plan (12/22/2020 12:33 PM EDT): Resolved on US Assessment & Plan (12/01/2020 1:03 PM EDT): Slight Cr increase, but still WNL Bilateral knee pain 12/20/2014 02/03/20 15 Lower extremity weakness 12/20/2014 Decreased proprioception of joint of foot 12/20/2014 02/02/2015 Decreased proprioception of joint of foot 12/20/2014 02/02/2015 Impaired mobility and ADLs 12/20/2014 1 Other physical therapy 12/20/201402/02 Other physical therapy 12/16/201204/20 Backache, unspecified 12/16/20122013 Iron deficiency anemia due t o chronic blood loss 08/16/2011 05/25/2021 Overview (05/25/2021): Patient reports history of iron deficiency anemia around age 10 when she had UC flare. She required iron infusions. Assessment & Plan (05/25/2021 8:57 AM EST): Resolved. Will remove from problem list. Encounters Date Type Department Care Team Description 12/21/2023 Refill [facility] OB-LANDFILL GRADER [address] [place] [address] Miya Ortiz, Encounter for surveillance of contraceptive pills 11/27/2023 8:10 AM EDT Office Visit [facility] [employer] GRADER [address] [place] [address] Miya Ortiz, Encounter for gynecological examination (general) (routine) without abnormal findings (Primary Dx); Special screening examination for human papillomavirus (HPV); Encounter for surveillance of contraceptive pills 10/25/2023 11:30 AM EDT Office Visit [facility] [address] [place] [id number] Delfina Mohr PA-C Impetigo (Primary Dx); Infection of nose from Last 3 Months Immunizations Name Administration Dates Next Due COVID-19, mRNA, 100 mcg/0.5 ml (MODERNA) 01/01/2021,08/07/2020,07/10/2020 Covid-19, Mrna, Bivalent Ureña ster, 30 Mcg/0.3 Ml (Pfizer) 04/09/2022 Covid-19, Mrna, Bivalent Ureña ster, 50 Mcg/0.5 Ml (Moderna) 02/15/2023 DTaP (INFANRIX) 10/10/2003, 0,04/18/1999,02/12,1998 HPV, quadrivalent 12/18/2012,06/16/2012,01/27/20 12 Hep A, adult 08/01/2018,11/15/2017 Hep B, Ped/Adol 3 dose 07/11/1999,04/18/1999, HiB, unspecified 01/08/2000, 0,02/12/1999,12/06 IPV 10/10/2003, 0,02/12/1999,12/06 Influenza, split quadrivalent PF 02/21/2020,02/12 MMR 10/10/2003,10/08/1999 Meningococcal Conjugate MCV4P 10/30/2015, 012 Pneumococcal Conjugate PCV13 05/26/2015, 10/13/2000,01/08/2000,10/09 Pneumococcal Polysaccaride 05/17/2016,12/08/2015 TdaP 04/22/2022,10/01/2011 Varicella 11/27/2005,10/08/1999 influenza, I1V4-00 PF 02/08/2009 influenza, adjuvanted quadrivalent PF 02/15/2023 influenza, recombinant quadrivalent PF 2,03/14/2021 influenza, split quadrivalent 03/06/2019 influenza, trivalent nasal 02/09/2016,02/01/2015 influenza, unspecified 01/30/2023,2016,01/20/2014,01/06,01/27/2012,02/08/2009 Family History Medical History Relation Name Comments Alcohol abuse Father Jasen Garcia stopped cold t urkey, drinks no alcohol now Depression Father Jasen Garcia High blood pressure Father Jasen Garcia Other Diseases Father Jasen Garcia MS Thyroid disease Father Jasen Garcia Diabetes Maternal Grandmother Brittani Sheets Connective Tissue Diease Mother Amanda Depression Mother Amanda Diabetes Mother Amanda Hearing loss Mother Amanda Thyroid disease Mother Amanda Kenton's Relation Name Status Comments Father Jasen Garcia Alive Maternal Grandmother Brittani Sheets Mother Amanda Alive Social History Tobacco Use Types Packs/Day Years [...] Orientation Bisexual 12/01/2020 8: 02 AM EDT Last Filed Vital Signs Vital Sign Reading Time Taken Comments Blood Pressure 120/80 11/27/2023 8:15 AM EDT Pulse 100 10/25/2023 11:00 AM EDT Temperature 36.3 ??C (97.4 ??F) 10/25/2023 11:00 AM E DT Respiratory Rate 16 10/25/2023 11:00 AM EDT Oxygen Saturation 97% 10/25/2023 11:00 AM EDT Inhaled Oxygen Concentration - - Weight 91 kg (200 lb 9.6 oz) 11/27/2023 8:15 AM EDT Height 165.1 cm (5' 5) 11/27/2023 8:15 AM EDT Body Mass Index 33.38 11/27/2023 8:15 AM EDT Plan of Treatment Health Maintenance Due Date Last Done Comments Hepatitis C Screening 1998 Influenza Vaccine (#1) 2023 , 02/15/2023, 02/15/2023, Additional history exists Wellness Exam 11/27/2024 11/27/2023, 0811/2022, 01/17/2022, Additional history exists Cervical Cancer Screening 11/27/20262023, 11/19/2022, 11/19/2022, Additional history exists DTaP,Tdap,and Td Vaccine (8 - Td or Tdap) 04/22/2032 04/22/2022, 10/01/2011, 10/10/2003, Additional history exists HPV Vaccine Completed 12/18/2012, 08/2012, 01/27/2012 Pneumococcal Vaccine: Combined Completed 0 05/17/2016, 12/08/2015, 05/26/2015, Additional history exists Goals Goal Patient Goal Type Associated Problems Recent Progress Patient-Stated? Author Monitor your weight Weight No change( 024 8:07 AM EDT) Yes Sunshine Russ, ORION Note: Maintain current weight Procedures Procedure Name Priority Date/Time Associated Diagnosis Comments PAP IG W/RFL TO HPV ALL PATH Routine 11/27/2023 9:17 AM EDT Encounter for gynecological examination (general) (routine) without abnormal findings Special screening examination for human papillomavirus (HPV) from Last 3 Months Results * PAP IG W/RFL HPV all PATH (11/27/2023 9:17 AM EDT) DIANGOSIS,PAP Comment [facility] 1 Comment: NEGATIVE FOR INTRAEPITHELIAL LESION OR MALIGNANCY. FUNGAL ORGANISMS MORPHOLOGICALLY CONSISTENT WITH LISBETH SPECIES ARE PRESENT. THIS SPECIMEN WAS RESCREENED PART OF OUR STRETCHING PRESS OPERATOR PROGRAM. Specimen adequacy: Comment [facility] 1 Comment: [...] HPV testing was performed. Performed At: 01 [facility] [address] [place] ??[id number] Geoffrey Meza MD [id number] Performed At: [address] [facility] [address] ??[id number] Homeroevelin Lloyd PhD [id number] Swab SPECIMEN FROM CERVIX OR VAGINA / Unknown 11/27/2023 9:17 AM EDT 11/27/2023 Narrative [facility] - 12/02/2023 3:07 PM EDT Specimen Comment: Source.............Cervix Specimen Comment: No. of containers..01 ThinPrep Vial Miya Ortiz DO LAB REFERENCE O RDERABLES [facility] 2 from Last 3 Months Care Teams Piping Supervisor Relationship Specialty Start Date End Date Cheryl Rodríguez MD [address] [facility] [address] [place] [address] PCP - General Family Medicine 10/25/23
--- OUTSIDE RECORDS SUMMARY | 2024-01-09 13:09 | XMS_ITS | Encounter Summary ---
Author Organization [facility] Address [address] [place] [address] Care Team Providers Care Cosmetician Name Role Phone Cheryl Rodríguez MD Primary Care Provider [phone] Cheryl Rodríguez MD Primary Care Provider [phone] Reason for Visit * Reason Onset Date Comments Medication Refill 10/24/2022 Encounter Details Date Type Department Care Team (Late st Contact Info) Description 10/24/2022 Refill [facility] [address] [facility] [place] [phone] Cheryl Rodríguez MD [address] [place] [address] Anxiety and depression Social History Tobacco Use Types Packs/Day Years Used Date Smoking Tobacco: Never Smokeless Tobacco: Never Alcohol Use Standard Drinks/Week Comments Yes 0 (1 standard drink = 0.6 oz pur e alcohol) rare Sex and Gender Information Value Date Recorded Sex Assigned at Female 03/02/2019 2:51 PM EST Gender Identity Female 03/02/2019 2:51 PM EST Sexual Orientation Bisexual 12/01/2020 8: 02 AM EDT documented as of this encounter Functional Status Functional Status Response [...] No 11/27/2020 documented as of this encounter Plan of Treatment Not on file documented as of this encounter Goals Goal Patient Goal Type Associated Problems Recent Progress Patient-Stated? Author Monitor your weight Weight No change( 024 8:07 AM EDT) Yes Sunshine Russ, RN Note: Maintain current weight documented as of this encounter Visit Diagnoses Diagnosis Anxiety and depression Dysthymic disorder documented in this encounter Care Teams Cosmetician Relationship Specialty Start Date End Date Cheryl Rodríguez MD [address] [address] PCP - General Family Medicine 02/25/22 08/21/23 Cheryl Rodríguez MD [address] [facility] [address] [place] [address] PCP - General Family Medicine 10/25/23 documented as of this encounter
--- OUTSIDE RECORDS SUMMARY | 2024-01-09 13:09 | XMS_ITS | Encounter Summary ---
Author Organization [facility] Address [address] [place] [address] Care Team Providers Care Dope Edger Name Role Phone Cheryl Rodríguez MD Primary Care Provider [phone] Reason for Visit * Reason Comments Medication Refill Encounter Details Date Type Department Care Team (Late st Contact Info) Description 12/21/2023 Refill [facility] MILLING MACHINE OPERATOR [address] [place] [address] Miya Ortiz DO [address] [place] [address] Encounter for surveillance of contraceptive pills Social [...] as of this encounter Visit Diagnoses Diagnosis Encounter for surveillance of contraceptive pills Surveillance of previously prescribed contraceptive pill documented in this encounter Care Teams Dope Edger Relationship Specialty Start Date End Date Cheryl Rodríguez MD 500 [facility] [address] [place] [address] PCP - General Family Medicine 10/25/23 documented as of this encounter
--- OUTSIDE RECORDS SUMMARY | 2024-01-09 13:09 | XMS_ITS | Encounter Summary ---
Author Organization [facility] Address [address] [place] [address] Care Team Providers Care Blast Furnace Checker Name Role Phone Cheryl Rodríguez MD Primary Care Provider [phone] Reason for Visit * Reason Comments Sick Visit Very dry, scabbed no se, have been dealing with it since November 2022 - Entered by patient Encounter Details Date Type Department Care Team (Late st Contact Info) Description 10/25/2023 11:30 AM EDT Office Visit [facility] [address] [place] [id number] Delfina Mohr PA-C [address] [facility] [address] [place] [address] Impetigo (Primary Dx); Infection of nose Social History Tobacco Use Types Packs/Day Years [...] Sign Reading Time Taken Comments Blood Pressure 112/78 10/25/2023 11:00 AM EDT Pulse 100 10/25/2023 11:00 AM EDT Temperature 36.3 ??C (97.4 ??F) 10/25/2023 11:00 AM E DT Respiratory Rate 16 10/25/2023 11:00 AM EDT Oxygen Saturation 97% 10/25/2023 11:00 AM EDT Inhaled Oxygen Concentration - - Weight - - Height - - Body Mass Index - - documented in this encounter Functional Status Functional [...] as of this encounter Progress Notes * Delfina Mohr PA-C - 10/25/2023 11:30 AM EDT Name: Patricia Garcia Date: 10/25/2023 : 2000 Subjective HPI: This is a 23 y.o. year old female who presents with very dry, scabbing nose and has been dealing with this since November 2022. Has tried a couple of amoxicillin without much benefit. Has been trying saline and saline gel without help. Objective PHYSICAL EXAM: VITAL SIGNS: Vitals: 10/25/23 1100 BP: 112/78 Pulse: 100 Resp: 16 Temp: 97.4 ??F (36.3 ??C) Patient's last menstrual period was 10/23/2023. SpO2: 97 % Physical Exam Vitals and nursing note reviewed. Constitutional: General: She is not in acute distress. Appearance: Normal appearance. She is not ill-appearing. HENT: Head: Normocephalic and atraumatic. Nose: Mucosal edema present. Right Nostril: No foreign body, epistaxis, septal hematoma or occlusion. Left Nostril: No foreign body, epistaxis, septal hematoma or occlusion. Comments: Bilateral nares with significant scabbing, crusting lesions all throughout the nose Eyes: Conjunctiva/sclera: Conjunctivae normal. Cardiovascular: Rate and Rhythm: Normal rate. Pulmonary: Effort: Pulmonary effort is normal. Skin: General: Skin is warm. Capillary Refill: Capillary refill takes less than 2 seconds. Neurological: General: No focal deficit present. Mental Status: She is alert. Psychiatric: Mood and Affect: Mood normal. Assessment ASSESSMENT AND PLAN: ICD-10-CM 1. Impetigo L01.00 mupirocin (BACTROBAN) 2 % ointment 2. Infection of nose J34.89 sulfamethoxazole-trimethoprim (BACTRIM DS) 800-160 mg per tablet mupirocin (BACTROBAN) 2 % ointment Plan: Discussed with patient doing mupirocin in addition to Bactrim. 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 Patient also appeared tohave some impetigo versus cellulitic changes and would recommend Bactrim in addition to the mupirocin. If symptoms continue follow up with primary care or return to clinic. If acute distress follow up in the ED. Delfina Mohr PA-C documented in this encounter Plan of Treatment Not on file documented as of this encounter Goals Goal Patient Goal Type Associated Problems Recent Progress Patient-Stated? Author Monitor your weight Weight No change( 024 8:07 AM EDT) Yes Sunshine Russ, ORION Note: Maintain current weight documented as of this encounter Visit Diagnoses Diagnosis Impetigo- Primary Infection of nose documented in this encounter Care Teams Blast Furnace Checker Relationship Specialty Start Date End Date Cheryl Rodríguez MD [address] [address] PCP - General Family Medicine 10/25/23 documented as of this encounter
--- OUTSIDE RECORDS SUMMARY | 2024-01-09 13:09 | XMS_ITS | Encounter Summary ---
Author Organization [facility] Address [address] [place] [address] Care Team Providers Care Senior Government Program Analyst Name Role Phone Cheryl Rodríguez MD Primary Care Provider [phone] Cheryl Rodríguez MD Primary Care Provider [phone] Reason for Visit * Reason Onset Date Comments Medication Refill 07/23/2023 Encounter Details Date Type Department Care Team (Late st Contact Info) Description 07/23/2023 Refill [facility] [address] [place] [phone] Cheryl Rodríguez MD [address] [place] [address] Anxiety and depression Social History Tobacco Use [...] disorder documented in this encounter Care Teams Senior Government Program Analyst Relationship Specialty Start Date End Date Cheryl Rodríguez MD [address] [address] PCP - General Family Medicine 02/25/22 08/21/23 Cheryl Rodríguez MD 500 [facility] [address] [place] [address] PCP - General Family Medicine 10/25/23 documented as of this encounter
--- OUTSIDE RECORDS SUMMARY | 2024-01-09 13:10 | XMS_ITS ---
Author Organization [facility] Address [address] [place] [address] Care Team Providers Care Quality Assurance Assistant Name Role Phone NO PCP Primary Care Provider Tanna Pinon [id number] Jude Unavailable Allergies No Known Allergies REASON FOR VISIT ear infection not clearing up Medications Medication SIG (Take, Route, Frequency, Duration) Notes Start Date End Date Status Fluconazole 150 MG 1 tablet Orally once for 1 days may repeat dose in 24 hours if symptoms persist 11/26/2023 11/27/2023 Active DULoxetine HCl 60 MG 1 capsule Orally Once a day plus 30mg for total of 90mg daily Active Ondansetron HCl 8 MG 1 tablet as needed Orally Once a day Active Paxlovid (300/100) 20 x 150 MG & 10 x 100MG 3 tablets Orally Twice a day for 5 11/26/2022 Not-Taking Iron (Ferrous Sulfate) 325 (65 Fe) MG 1 tablet Orally daily Acti ve Remicade 100 MG as directed Intravenous every 7 weeks Active Amoxicillin-Pot Clavulanate 875-125 MG 1 tablet Orally every 12 hrs for 10 days 11/15/2023 11/25/2023 Active SOLU-Medrol 1000 MG as directed Injectio n every 7 week Active ZyrTEC Allergy 10 MG 1 tablet Orally At Bedtime Active Omeprazole 20 MG 1 capsule 30 minutes before morning meal Orally Once a day Active Vitamin D 50 MCG (2000 UT) 1 capsule Orally Once a day Active Amitriptyline HCl 100 MG 1 tablet at bed time Orally Once a day Active Cold and Flu THERAPY PACK as directed Orally Not-William liang Social History Tobacco Use: Social History Observation Description Date Details (start date - stop date) Never Smoker NA - NA Tobacco Use NON BIOMETRIC Visit Question Answer Notes Are you a Never smoker Tobacco Control (Standard) Question Answer Notes Tobacco use: Nonsmoker AUDIT-C (Standard) Question Answer Notes Did you have a drink containing alcohol in the p ast year? No Points 0 Interpretation Negative Vital Signs Temperature 98.6 degrees Fahrenheit 11/15/19 24 Respiratory Rate 18 /min 11/15/2023 Blood pressure systolic 118 mm Hg 11/15/19 24 Blood pressure diastolic 72 mm Hg 024 Height 65 in 11/15/2023 Weight 202 lbs 11/15/2023 BMI 33.61 kg/m2 11/15/2023 Oximetry 98 11/15/2023 Encounters Encounter Location Date Provider Diagnosis [address] [phone] 11/15/2023 Jude Pinon Acute otitis media, bilateral H66.93 and Prophylactic antibiotic Z79.2 Assessments Encounter Date Diagnosis (ICD Code) Assessment Notes Treatment Notes Treatment Clinical Notes 11/15/2023 Acute otitis media, bilateral (ICD-10 - H66.93) Ear Infection (Otitis Media): Care Instructions material was published, Keeping Ears Dry: Care Instructions material was published 11/15/2023 Prophylactic antibiotic (ICD-10 - Z79.2) 11/15/2023 Other Amoxicillin/Cla vula praveen Oral Tablet (AMOXICILLIN/CLAVUL ANIC ACID - ORAL) material was published, Fluconazole Oral Tablet 150 mg (FLUCONAZOLE 150 MG - ORAL) material was published Plan Of Treatment Medication Medication Name Sig Start Date Stop Date Notes Fluconazole 150 MG 1 tablet Orally once for 1 days 11/26/2023 11/27/2023 DULoxetine HCl 60 MG 1 capsule Orally Once a day Ondansetron HCl 8 MG 1 tablet as needed Orally Once a day Iron (Ferrous Sulfate) 325 ( 65 Fe) MG 1 tablet Orally daily Remicade 100 MG as directed Intraven ous every 7 weeks Amoxicillin-Pot Clavulanate 875-125 MG 1 tablet Orally every 12 hrs for 10 days 11/15/2023 11/25/2023 SOLU-Medrol 1000 MG as directed Injectio n every 7 week ZyrTEC Allergy 10 MG 1 tablet Orally At Bedtime Omeprazole 20 MG 1 capsule 30 minutes before morning meal Orally Once a day Vitamin D 50 MCG (2000 UT) 1 capsule Orally Once a day Amitriptyline HCl 100 MG 1 tablet at bed time Orally Once a day Treatment Notes Assessment Notes Acute otitis media, bilateral Ear Infect ion (Otitis Media): Care Instructions material was published, Keeping Ears Dry: Care Instructions material was published Other Amoxicillin/Clavulan ate Oral Tablet (AMOXICILLIN/CLAVULANIC ACID - ORAL) material was published, Fluconazole Oral Tablet 150 mg (FLUCONAZOLE 150 MG - ORAL) material was published Next Appt Details Follow Up: Follow up in 4-5 days if symptoms worsen or fail to improve., Reason: Progress Notes * Patricia MONTANODOB:2000 ( 23 yo F)Acc No.[id number]:11/15/2023 Progress Notes Patient:?Patricia MONTANO Provider:?NELIA Mays :2000???Age:23 Y???Sex:Female D ate:11/15/2023 External Visit ID:[id number] Address:[facility] [place], [place], [id number] Pcp:NO PCP Subjective: * Chief Complaints: * ???1. Ear infection not debra ring up. * HPI: ???Ears:?23 year old female presents with c/o pain?right ear,? but both ears are bothering her.? Pt reports that she was seen at [facility] on Friday and was given amoxicillin.? Pt states that she is on day 5 of antibiotics and not feeling any better.? Pt reports that she was tested for COVID and strep which were both negative.? Pt reports that she still has ear pain, cough, body aches, increased fatigue, headache, coughing and shortness of breath.? Pt reports that she started getting sick a week ago Friday.??.? * ROS:?CONSTITUTIONAL:?no?chills.?fatigue?yes.?body aches? yes.?no?fever.?EYES:?no?watery.?no?itchy.?EARS:?ear pain?yes.?sensation of fullness?yes.?NOSE:?congestion?yes.?MOUTH AND THROAT:?no?sore throat.?RESPIRATORY:?dyspnea?yes.?cough?yes.?CARDIOVASCULAR:?no?chest pain.?GASTROENTEROLOGY:?nausea?yes.?no?vomiting.?no?diarrhea.?NEUROLOGY:?headache?yes.? * Medical History:?ulcer Colit is, Anxiety/depreeios, Gerd, Anemia. * Surgical History:?Denies Pas t Surgical History. * Hospitalization/Major Diagno stic Procedure:?Denies Past Hospitalization. * Family History:?Father: matias march.?Mother: alive.? * Social History:?General:?Tobacco Use NON BIOMETRIC Visit?Are you a?Never smoker.?Drug/Alcohol:?AUDIT-C (Standard)?Did you have a drink containing alcohol in the past year??No,?Points?0,?Interpretation?Negative.?Tobacco Use:?Tobacco Control (Standard)?Tobacco use:?Nonsmoker.? * Medications:?Taking SOLU-Med rol 1000 MG Solution Reconstituted as directed Injection every 7 week , Taking Remicade 100 MG Solution Reconstituted as directed Intravenous every 7 weeks , Taking Omeprazole 20 MG Capsule Delayed Release 1 capsule 30 minutes before morning meal Orally Once a day , Taking ZyrTEC Allergy 10 MG Tablet 1 tablet Orally At Bedtime , Taking Iron (Ferrous Sulfate) 325 (65 Fe) MG Tablet 1 tablet Orally daily , Taking Ondansetron HCl 8 MG Tablet 1 tablet as needed Orally Once a day , Taking DULoxetine HCl 60 MG Capsule Delayed Release Particles 1 capsule Orally Once a day plus 30mg for total of 90mg daily, Taking Amitriptyline HCl 100 MG Tablet 1 tablet at bedtime Orally Once a day , Taking Vitamin D 50 MCG (2000 UT) Capsule 1 capsule Orally Once a day , Not-Taking Paxlovid (300/100) 20 x 150 MG & 10 x 100MG Tablet Therapy Pack 3 tablets Orally Twice a day , Not-Taking Cold and Flu THERAPY PACK Miscellaneous as directed Orally , Medication List reviewed and reconciled with the patient * Allergies:?N.K.D.A. Objective: * Vitals:?Temp:98.6, Pulse:108 , RR:18, BP:118/72, Pain (at time of visit):08/21, LNMP: 10/26/2023, Ht: 65, Wt: 202, BMI:33.61, Pulse Ox:98. * Examination: ???Focused Exam: ?GENERAL:?alert and oriented x 4, no acute distress, dress appropriate for the environment & temp, well-groomed, appears well.?EARS:?right, ear tender, bloody discharge, TM red ?left,ear tender,TM red,TM bulging,purulent discharge, .?NOSE?external nose free of swelling, trauma, and deviation, no discharge, no frontal or maxillary tenderness.?MOUTH AND THROAT:?---PHARYNX---, uvula midline, pharynx injected.?RESPIRATORY:?breath sounds clear throughout, respiration even and unlabored.?CARDIO:?S1 & S2 single sounds, no murmurs, gallops, rubs, or clicks, RRR.?NEURO:?gait steady, judgment intact, alert and responsive, oriented to person, place, and time, alert and oriented.?PSYCH:?friendly attitude.? Assessment: * Assessment: 1.?Acute otitis media, bilat eral - H66.93 (Primary)???2.?Prophylactic antibiotic - Z79.2??? Plan: * Treatment: 2.?Prophylactic antibiotic? Start Fluconazole Tablet, 150 MG, 1 tablet, Orally, once may repeat dose in 24 hours if symptoms persist, 1 days, 2, Refills 0.?? 3.?Others? Continue SOLU-Medrol Solution Reconstituted, 1000 MG, as directed, Injection, every 7 week;?Continue Remicade Solution Reconstituted, 100 MG, as directed, Intravenous, every 7 weeks;?Continue Omeprazole Capsule Delayed Release, 20 MG, 1 capsule 30 minutes before morning meal, Orally, Once a day;?Continue ZyrTEC Allergy Tablet, 10 MG, 1 tablet, Orally, At Bedtime;?Continue Iron (Ferrous Sulfate) Tablet, 325 (65 Fe) MG, 1 tablet, Orally, daily;?Continue Ondansetron HCl Tablet, 8 MG, 1 tablet as needed, Orally, Once a day;?Continue DULoxetine HCl Capsule Delayed Release Particles, 60 MG, 1 capsule, Orally, Once a day plus 30mg for total of 90mg daily;?Continue Amitriptyline HCl Tablet, 100 MG, 1 tablet at bedtime, Orally, Once a day;?Continue Vitamin D Capsule, 50 MCG (2000 UT), 1 capsule, Orally, Once a day.?? Notes: Amoxicillin/Clavulanate Oral Tablet (AMOXICILLIN/CLAVULANIC ACID - ORAL) material was published, Fluconazole Oral Tablet 150 mg (FLUCONAZOLE 150 MG - ORAL) material was published?? * Procedure Codes:?FIELD MARKETING DIRECTOR Ana Lilia dominguez to [employer] for Code Review * Follow Up:?Follow up in 4-5 days if symptoms worsen or fail to improve. * Billing Information: * Visit Code:? * Procedure Codes:? FIELD MARKETING DIRECTOR Sending to [employer] for Code Review. Care Plan Details* Images * 11/15/2023insid * Sign off status: Completed true * Provider:?NELIA Mays Date:? Generated for Daniel dominguez/Sincere/Deni on:?01/09/2024 01:09 PM CDT History and Physical Notes * HPI (History of Present Illness) Category Sub-Category Detail Notes Ears pain right ear, but b oth ears are bothering her. Pt reports that she was seen at [facility] on Friday and was given amoxicillin. Pt states that she is on day 5 of antibiotics and not feeling any better. Pt reports that she was tested for COVID and strep which were both negative. Pt reports that she still has ear pain, cough, body aches, increased fatigue, headache, coughing and shortness of breath. Pt reports that she started getting sick a week ago Friday. Examination Category Sub-Category Detail Notes Focused Exam EARS: right, ear tende r, bloody discharge, TM red left,ear tender,TM red,TM bulging,purulent discharge, NOSE external nose free o f swelling, trauma, and deviation, no discharge, no frontal or maxillary tenderness MOUTH AND THROAT: ---PHARYNX---, uvula midline, pharynx injected RESPIRATORY: breath sounds clear throughout, respiration even and unlabored NEURO: gait steady, judgmen t intact, alert and responsive, oriented to person, place, and time, alert and oriented GENERAL: alert and oriented x 4, no acute distress, dress appropriate for the environment & temp, well-groomed, appears well PSYCH: friendly attitude CARDIO: S1 & S2 single sound s, no murmurs, gallops, rubs, or clicks, RRR
--- OUTSIDE RECORDS SUMMARY | 2024-01-09 13:10 | XMS_ITS | Encounter Summary ---
Author Organization [facility] Address [address] [place] [address] Care Team Providers Care Jawbone Breaker Name Role Phone No Pcp, [facility] Primary Care Provider Unavailabl e Encounter Details Date Type Department Care Team (Late st Contact Info) Description 05/16/2015 Abstract [facility] Division of Gastroenterology, Hepatology & Nutrition [address] [place] [phone] Loin Puller, [facility] Social History Tobacco Use Types Packs/Day Years Used Date Smoking Tobacco: Never Smokeless Tobacco: Never Alcohol Use Standard Drinks/Week Comments No 0 (1 standard drink = 0.6 oz pur e alcohol) Sex and Gender Information Value Date Recorded Sex Assigned at Not on file Gender Identity Not on file Sexual Orientation Not on file documented as of this encounter Plan of Treatment Not on file documented as of this encounter Visit Diagnoses Not on filedocumented in this encounter Care Teams Jawbone Breaker Relationship Specialty Start Date End Date No Pcp [facility] PCP - General 11/02/18 documented as of this encounter
--- OUTSIDE RECORDS SUMMARY | 2024-01-09 13:10 | XMS_ITS | Encounter Summary ---
Author Organization [facility] [place] [address] Care Team Providers Care International Nurse Name Role Phone Cheryl Rodríguez MD Primary Care Provider [phone] Encounter Details Date Type Department Care Team (Latest Contact Info) Description 11/11/2023 Travel Social History Tobacco Use Types Packs/Day Years Used Date Smoking Tobacco: Never Assessed Sex and Gender Information Value Date Recorded Sex Assigned at Female 12/04/2021 3:44 PM EDT Gender Identity Female 12/04/2021 3:44 PM EDT Sexual Orientation Not on file Job Start Date Occupation Industry Not on file Not on file Not on file documented as of this encounter Plan of Treatment Not on file documented as of this encounter Visit Diagnoses Not on filedocumented in this encounter Additional Health Concerns Assessment Noted Time A Body Mass Index follow-up plan has been documented for the patient 01/22/2022 10:09 AM EDT documented as of this encounter Care Teams International Nurse Relationship Specialty Start Date End Date Cheryl Rodríguez MD 500 [facility] [address] [place] [address] PCP - General Family Practice 09/27/22 documented as of this encounter
--- OUTSIDE RECORDS SUMMARY | 2024-01-09 13:10 | XMS_ITS | Encounter Summary ---
Author Organization [facility] [place] [address] Care Team Providers Care Second Steward Name Role Phone Cheryl Rodríguez MD Primary Care Provider [phone] Reason for Visit * Reason Comments Sore Throat Encounter Details Date Type Department Care Team (Late st Contact Info) Description 11/11/2023 3:30 PM EDT Office Visit [facility] [place] [address] Maricarmen Booth, LATEXER [address] [place] [address] Non-recurrent acute serous otitis media of both ears (Primary Dx); Sore throat Social History Tobacco Use Types Packs/Day Years Used Date Smoking Tobacco: Never Assessed Sex and Gender Information Value Date Recorded Sex Assigned at Female 12/04/2021 3:44 PM EDT Gender Identity Female 12/04/2021 3:44 PM EDT Sexual Orientation Not on file Job Start Date Occupation Industry Not on file Not on file Not on file documented as of this encounter Last Filed Vital Signs Vital Sign Reading Time Taken Comments Blood Pressure 119/88 11/11/2023 3:38 PM EDT Pulse 101 11/11/2023 3:38 PM EDT Temperature 37.5 ??C (99.5 ??F) 11/11/2023 3:38 PM ED T Respiratory Rate - - Oxygen Saturation 97% 11/11/2023 3:38 PM EDT Inhaled Oxygen Concentration - - Weight - - Height - - Body Mass Index - - documented in this encounter Progress Notes * Maricarmen Booth, LATEXER - 11/11/2023 3:30 PM EDT Assessment/Plan ICD-10-CM ICD-9-CM 1. Non-recurrent acute serous otitis media of both ears H65.03 381.01 amoxicillin (AMOXIL) 875 mg tablet 2. Sore throat J02.9 462 POC RAPID STREP CULTURE, THROAT Amoxicillin prescribed for acute otitis media. Rapid strep negative. Throat culture sent. Patient instructed to take Tylenol as needed for throat pain. Follow-up with PCP if symptoms worsen or fail to improve. Patient is in agreement to seek ER care for life-threatening symptoms and follow-up with PCP as needed. Patient is advised of additional OTC medications and supportive measures for continued relief of symptoms. I do recommend follow-up as needed Patient is appropriate for discharge to home as there is no emergent condition nor need for escalation of care at this time. Treatment plan was discussed with the patient in detail and they voiced understanding and agreementwith it as stated in the assessment and plan section of this note. Patient discharged from urgent care to home in stable condition without noted toxic or distressed appearance. RTO PRN or next scheduled appt Subjective Sore Throat Nursing Notes: Elvira White MA-Cred 11/11/23 1539 Signed Sore throat x 3 days/Did at home Covid test today-Neg. Patient presents to the urgent care with sore throat x 3 days. Patient states that she has had family in from out of town and she also recently traveled. Patient has been taking Tylenol Cold and flu with some relief. Patient denies any other symptoms or concerns. Patient took an at home COVID test and it was negative. Objective Review of Systems Constitutional: Negative for activity change, appetite change, fatigue and fever. HENT: Positive for sore throat. Negative for congestion, postnasal drip, rhinorrhea, sinus pressure, sinus pain, trouble swallowing and voice change. Respiratory: Negative for apnea, cough, chest tightness and shortness of breath. Cardiovascular: Negative for chest pain. Gastrointestinal: Negative for diarrhea, nausea and vomiting. Genitourinary: Negative for dysuria, hematuria and urgency. Musculoskeletal: Negative for back pain and myalgias. Skin: Negative for color change. Neurological: Negative for dizziness and headaches. Visit Vitals BP 119/88 (Site: Left arm, Position: Sitting) Pulse 101 Temp 99.5 ??F (37.5 ??C) SpO2 97% OB Status Having periods Physical Exam Constitutional: Appearance: She is not ill-appearing. HENT: Head: Normocephalic and atraumatic. Right Ear: External ear normal. Tympanic membrane is erythematous. Left Ear: External ear normal. Tympanic membrane is erythematous. Nose: Nose normal. Mouth/Throat: Mouth: Mucous membranes are moist. Pharynx: Oropharynx is clear. Eyes: General: No scleral icterus. Right eye: No discharge. Left eye: No discharge. Conjunctiva/sclera: Conjunctivae normal. Cardiovascular: Rate and Rhythm: Normal rate and regular rhythm. Heart sounds: Normal heart sounds. No murmur heard. No friction rub. No gallop. Pulmonary: Effort: Pulmonary effort is normal. No respiratory distress. Breath sounds: Normal breath sounds. No stridor. No wheezing, rhonchi or rales. Chest: Chest wall: No tenderness. Musculoskeletal: General: No deformity or signs of injury. Cervical back: Normal range of motion. Lymphadenopathy: Cervical: Cervical adenopathy present. Skin: General: Skin is warm and dry. Findings: No rash. Neurological: Mental Status: She is alert. Psychiatric: Mood and Affect: Mood normal. Behavior: Behavior normal. Nursing notes and vital signs documented and reviewed. No orders to display Results for orders placed or performed in visit on 11/11/23 POC RAPID STREP Result Value Ref Range RAPID STREP (POC) neg Allergies Meds Problems Med Hx Surg Hx Fam Hx I am having Patricia Lozano start on amoxicillin. I am also having her maintain her cetirizine, inFLIXimab, FeroSuL, omeprazole, amitriptyline, DULoxetine, cholecalciferol, norethindrone-e.estradiol-iron ( ORAL), fluticasone propionate, and mupirocin. documented in this encounter Nursing Notes * Elvira White MA-Cred - 11/11/2023 3:30 PM EDT Sore throat x 3 days/Did at home Covid test today-Neg. documented in this encounter Plan of Treatment Not on file documented as of this encounter Procedures Procedure Name Priority Date/Time Associated Diagnosis Comments CULTURE, THROAT Routine 11/11/2023 3:53 PM EDT Sore throat POC RAPID STREP Routine 11/11/2023 Sore throat documented in this encounter Results * (ABNORMAL) CULTURE, THROAT (11/11/2023 3:53 PM EDT) TYPE DESCRIPTION THROAT COM [facility] SOURCE DESCRIPTION THROAT [facility] CULTURE BETA STREPTOCOC CI, NOT GROUP A(A) [facility] Swab. (Throat.) 11/11/2023 3 :53 PM EDT 11/11/2023 11:39 PM EDT Maricarmen Booth APRN MICROBIOLOGY ORDERS [facility] [address] [place] [address], * POC RAPID STREP (11/11/2023) RAPID STREP (POC) neg Swab. (Throat.) 11/11/2023 Maricarmen Booth APRN POC TESTING documented in this encounter Visit Diagnoses Diagnosis Non-recurrent acute serous otitis media of both ears- Primary Sore throat Acute pharyngitis documented in this encounter Additional Health Concerns Assessment Noted Time A Body Mass Index follow-up plan has been documented for the patient 01/22/2022 10:09 AM EDT documented as of this encounter Care Teams Second Steward Relationship Specialty Start Date End Date Cheryl Rodríguez MD [address] [id number] PCP - General Family Practice 09/27/22 documented as of this encounter
--- OUTSIDE RECORDS SUMMARY | 2024-01-09 13:10 | XMS_ITS | Encounter Summary ---
Author Organization [facility] Address [address] [place] [address] Care Team Providers Care Refinery Operator Visbreaking Name Role Phone No Pcp, [facility] Primary Care Provider Unavailabl e Encounter Details Date Type Department Care Team (Late st Contact Info) Description 11/28/2015 Abstract [facility] Division of Gastroenterology, Hepatology & Nutrition [address] [place] [id number] Sales Activity Manager, [facility] Social History Tobacco Use Types Packs/Day [...] on filedocumented in this encounter Care Teams Refinery Operator Visbreaking Relationship Specialty Start Date End Date No Pcp [facility] PCP - General 11/02/18 documented as of this encounter
--- OUTSIDE RECORDS SUMMARY | 2024-01-09 13:10 | XMS_ITS | Encounter Summary ---
Author Organization [facility] [place] [address] Care Team Providers Care Manager Of Administration Name Role Phone Cheryl Rodríguez MD Primary Care Provider [phone] Encounter Details Date Type Department Care Team (Latest Contact Info) Description 11/19/2023 Travel Social History Tobacco Use Types Packs/Day [...] documented as of this encounter Care Teams Manager Of Administration Relationship Specialty Start Date End Date Cheryl Rodríguez MD 500 [facility] [address] [place] [address] PCP - General Family Practice 09/27/22 documented as of this encounter
--- OUTSIDE RECORDS SUMMARY | 2024-01-09 13:10 | XMS_ITS | Encounter Summary ---
Author Organization [facility] Address [address] [place] [address] Care Team Providers Care Survey Research Center Director Name Role Phone No Pcp, [facility] Primary Care Provider Unavailabl e Encounter Details Date Type Department Care Team (Late st Contact Info) Description 07/22/2013 Abstract [facility] Division of Gastroenterology, Hepatology & Nutrition [address] [place] [phone] Nemo Barakat M.D. [address] [place] [place] [address] Social History Tobacco Use Types Packs/Day Years [...] on filedocumented in this encounter Care Teams Survey Research Center Director Relationship Specialty Start Date End Date No Pcp, [facility] PCP - General 11/02/18 documented as of this encounter
--- OUTSIDE RECORDS SUMMARY | 2024-01-09 13:10 | XMS_ITS | Encounter Summary ---
Author Organization [facility] Address [address] [place] [address] Care Team Providers Care Railway Yard Assistant Name Role Phone Cheryl Rodríguez MD Primary Care Provider [phone] Cheryl Rodríguez MD Primary Care Provider [phone] Encounter Details Date Type Department Care Team (Late st Contact Info) Description 03/27/2022 Documentation Only [facility] [address] [place] [address] Social History Tobacco Use Types Packs/Day Years [...] Procedure Name Priority Date/Time Associated Diagnosis Comments AMB CORRESPONDENCE (SCANNED DOCUMENT) 03/27/2022 3:17 PM EST documented in this encounter Results * AMB CORRESPONDENCE (SCANNED DOCUMENT) (03/27/2022 3:17 PM EST) Narrative 03/27/2022 3:17 PM EST Ordered by an unspecified provider. Scan Provider SCANNED DOCUMENTS documented in this encounter Visit Diagnoses Not on filedocumented in this encounter Care Teams Railway Yard Assistant Relationship Specialty Start Date End Date Cheryl Rodríguez MD 500 [facility] [address] [place] [address] PCP - General Family Medicine 02/25/22 08/21/23 Cheryl Rodríguez MD 500 [facility] [place] [address] PCP - General Family Medicine 10/25/23 documented as of this encounter
--- OUTSIDE RECORDS SUMMARY | 2024-01-09 13:10 | XMS_ITS | Patient Health Record ---
Author Organization [facility] Address [address] [place] [address] Care Team Providers Care Fast Brim Pouncer Name Role Phone NO PCP Primary Care Provider Tanna Pinon [id number] Jude Unavailable Allergies No Known Allergies Reason For Referral No Information Medications Medication SIG (Take, Route, Frequency, Duration) Notes Start Date End Date Status Vitamin D 50 MCG (1999) 1 capsule Orally Once a day Active Remicade 100 MG as directed Intraven ous every 7 weeks Active SOLU-Medrol 1000 MG as directed Injectio n every 7 week Active Amitriptyline HCl 100 MG 1 tablet at bed time Orally Once a day Active DULoxetine HCl 60 MG 1 capsule Orally Once a day plus 30mg for total of 90mg daily Active ZyrTEC Allergy 10 MG 1 tablet Orally At Bedtime Active Omeprazole 20 MG 1 capsule 30 minutes before morning meal Orally Once a day Active Ondansetron HCl 8 MG 1 tablet as needed Orally Once a day Active Paxlovid (300/100) 20 x 150 MG & 10 x 100MG 3 tablets Orally Twice a day for 5 11/26/2022 Not-Taking Cold and Flu THERAPY PACK as directed Orally Not-Taking Iron (Ferrous Sulfate) 325 (65 Fe) MG 1 tablet Orally daily Acti ve Social History Tobacco Use: Social History Observation [...] ast year? No Points 0 Interpretation Negative Problems Problem Type SNOMED Code ICD Code Onset Dates Problem Status W/U Status Risk Notes Problem 1588341 Tachycardia (R00.0) Active confirmed Problem 378350366 Gastroesophageal reflux disease without esophagitis (K21.9) Active confirmed Problem 97576534 Fatigue, unspeci fied type (R53.83) Active confirmed Problem 23872989 Ulcerative colit is with complication, unspecified location (K51.919) Active confirmed Problem 988023069 BMI 31.0-31.9,ad ult (Z68.31) Active confirmed Problem 794470320 Encounter for laboratory testing for COVID-19 virus (Z20.822) Active confirmed Vital Signs Temperature 98.6 degrees Fahrenheit 11/15/2023 Respiratory Rate 18 /min 11/15/2023 Oximetry 98 11/15/2023 Blood pressure diastolic 72 mm Hg 11/15/2023 Height 65 in 11/15/2023 Blood pressure systolic 118 mm Hg 11/15/2023 Weight 202 lbs 11/15/2023 BMI 33.61 kg/m2 11/15/2023 Encounters Encounter Location Date Provider Diagnosis [address] [phone] 11/15/2023 Jude Pinon Acute otitis media, bilateral H66.93 and Prophylactic antibiotic Z79.2 Assessments Encounter Date Diagnosis (ICD Code) Assessment Notes Treatment Notes Treatment Clinical Notes 11/15/2023 Prophylactic antibiotic (ICD-10 - Z79.2) 11/15/2023 Acute otitis media, bilateral (ICD-10 - H66.93) Ear Infection (Otitis Media): Care Instructions material was published, Keeping Ears Dry: Care Instructions material was published 11/15/2023 Other Amoxicillin/Cla vula praveen Oral Tablet (AMOXICILLIN/CLAVUL ANIC ACID - ORAL) material was published, Fluconazole Oral Tablet 150 mg (FLUCONAZOLE 150 MG - ORAL) material was published Plan Of Treatment No Information Insurance Providers Payer Name Payer Address Payer Phone Subscriber Number Group Number Insured Name Patient Relationship to Insured Coverage Start Date Coverage End Date [facility] [address] [place] [address] [phone] [id number] Patricia Garcia Self - patient is the insured Medical (General) History Medical History History ICD Code ulcer Colitis Anxiety/depreeios Gerd Anemia
--- OUTSIDE RECORDS SUMMARY | 2024-01-09 13:10 | XMS_ITS | Patient Health Record ---
Author Organization [facility] Address [address] [place] [address] Care Team Providers Care Scow Hand Name Role Phone ISABELLA COTTER Primary Care Provider Neida COLLAR TAILOR.Isabella DUNCAN Unavailable Unavaila ble Reason For Referral No Information Medications Medication SIG (Take, Route, Frequency, Duration) Notes Start Date End Date Status D-Chel 400 unit/mL ORAL *please revie w for potential update for e-prescription and drug interaction check* Active Flonase Allergy Relief 50 MCG/ACT Nasal Active sulfaSALAzine oral *please review f or potential update for e-prescription and drug interaction check* Active Remicade 100 MG Intravenous Active Probiotic oral *please review f or potential update for e-prescription and drug interaction check* Active 16.2-0.1037 -0.0194 mg 0.125mg prn from GI specialist, brand name is hyoscyamine Oral *please review for potential update for e-prescription and drug interaction check* Active Amitriptyline HCl 10 MG take 2 tablets by oral route daily Oral 1 Active Maxalt 10 MG take 1 tablet (10 mg) by oral route once, may repeat at 2 hour intervals; do not exceed 30 mg in 24 hours Oral 0 07/19/2015 Active Biotin oral *please review f or potential update for e-prescription and drug interaction check* Active MiraLax oral *please review f or potential update for e-prescription and drug interaction check* Active Focalin XR 15 MG take 2 capsules (30 mg) by oral route once daily in the morning Oral 1 Active Multivitamin oral *please review f or potential update for e-prescription and drug interaction check* Active Immunizations Vaccine Route Administration Date Status Comme nts DTaP Unknown 1998 Administered DTaP Unknown 04/18/1999 Administered DTaP Unknown 01/08/2000 Administered DTaP Unknown 10/10/2003 Administered DTaP Unknown 02/12/1999 Administered Hep B ( - 19 yo) Unknown 1998 Administered Hep B ( - 17 yo) Unknown 07/11/1999 Administered Hep B ( - 17 yo) Unknown 04/18/1999 Administered Hib (PRP-OMP) - PedvaxHib, 3 dose schedule Unknown 1998 Administered Hib (PRP-OMP) - PedvaxHib, 3 dose schedule Unknown 02/12/1999 Administered Hib (PRP-OMP) - PedvaxHib, 3 dose schedule Unknown 04/18/1999 Administered Hib (PRP-OMP) - PedvaxHib, 3 dose schedule Unknown 01/08/2000 Administered HPV 9 Unknown 01/27/2012 Administered HPV 9 Unknown 06/16/2012 Administered HPV 9 Unknown 12/18/2012 Administered Influenza 3 YESSI (Afluria) 3 years+ Unknown 02/23/2017 Administered Influenza 3 YESSI (Fluvirin) 4 years + Unknown 01/19/2009 Administered flumist Influenza 3 YESSI (Fluvirin) 4 years + Unknown 01/27/2012 Administered Influenza 3 YESSI (Fluvirin) 4 years + Unknown 01/08/2013 Administered Influenza 3 YESSI (Fluvirin) 4 years + Unknown 01/20/2014 Administered Influenza 3 YESSI (Fluvirin) 4 years + IM Intramuscular 02/09/2016 Administered Influenza 3 YESSI (Fluvirin) 4 years + IM Intramuscular 02/01/2015 Administered Influenza, live, intranasal Unknown 01/27/2012 Administered Influenza, live, intranasal Unknown 01/08/2013 Administered Influenza, live, intranasal Unknown 01/20/2014 Administered Influenza, live, intranasal IM Intramuscular 02/01/2015 Administered Influenza, live, intranasal IM Intramuscular 02/09/2016 Administered Influenza, live, intranasal Unknown 01/19/2009 Administered flumist IPV (Polio) Unknown 1998 Administered IPV (Polio) Unknown 02/12/1999 Administered IPV (Polio) Unknown 01/08/2000 Administered IPV (Polio) Unknown 10/10/2003 Administered Meningococcal ACYW (Menactra) IM Intramuscular 10/30/2015 Administered Meningococcal ACYW (Menactra) Unknown 10/01/2011 Administered MMR Unknown 10/08/1999 Administered MMR Unknown 10/10/2003 Administered Pneumococcal conjugate PCV 7 Unknown 10/10/1999 Administered Pneumococcal conjugate PCV 7 Unknown 01/08/2000 Administered Pneumococcal conjugate PCV 7 Unknown 10/13/2000 Administered Tdap Unknown 10/01/2011 Administered Varicella Unknown 10/08/1999 Administered Varicella Unknown 11/27/2005 Administered Problems Problem Type SNOMED Code ICD Code Onset Dates Problem Status W/U Status Risk Notes Problem Attention deficit hyperactivity disorder (769778352) ADHD (F90.9) Active confirmed Problem Non-infective enteritis and colitis (594558431) Colitis, 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
--- OUTSIDE RECORDS SUMMARY | 2024-01-09 13:10 | XMS_ITS | Clinical Summary ---
Author Organization [facility] Address [address] [place] [address] Care Team Providers Care Tableau Developer Name Role Phone No Pcp, [facility] Primary Care Provider Unavailabl e Source Comments [facility] is fully rolled out with thefollowing exceptions:General Clinical Research [facility] Allergies No known active allergies Medications Medication Sig Dispensed Refills Start Date End Date Status inFLIXimab (REMICADE) in sodium chloride (NS) 1 mL infusion by Intravenous route. Active dexmethylphenidate (FOCALIN XR) 5 MG extended release capsule Take 15 mg by mouth 2 times a day . Active loratadine (CLARITIN) 10 MG tablet Take 10 mg by mouth 1 time a day as needed. Active acetaminophen (TYLENOL EXTRA STRENGTH) 500 MG tablet Take 500 mg by mouth every 4-6 hours as needed. Active probiotic (ALIGN) capsule Take 1 Cap by mouth 2 times a day. Active Multiple Vitamins-Minerals (MULTIVITAMIN PO) Take 1 Tab by mouth 1 time a day . Active biotin 10 MG tabletIndications:Ul cerative colitis, other complication,Unspeci fied osteomyelitis, site unspecified Take 5 mg by mouth 2 times a day. Active cetirizine (ZyrTEC) 10 MG tablet Take 10 mg by mouth 1 time a day. Active pseudoephedrine (SUDAFED) 30 MG tablet 30 mg every 6 hours as needed. Active diphenhydrAMINE (BENADRYL) 25 MG tablet Take 25 mg by mouth every 4-6 hours as needed. Active ibuprofen (MOTRIN) 400 MG tablet Take by mouth. Active polyethylene glycol 3350 (MIRALAX) powderIndications:Ul cerative colitis without complications, unspecified location Take 1 Cap (17 gm total) by mouth 1 time a day. Mix 1 capful (17gm) in 8 ounces of fluid. 527 gm 11 06/02/2017 Active Uyirvhujloxvk-JNPW-I uaifenesin (TYLENOL COLD & HEAD PO) Active Calcium Citrate (CITRACAL PO) 1,200 mg. Active hyoscyamine (LEVSIN SL) 0.125 MG sublingual tabletIndications:Ul cerative colitis without complications, unspecified location PLACE 1 TAB (0.125 MG TOTAL) UNDER THE TONGUE EVERY 4-6 HOURS NEEDED FOR CRAMPING. 30 Tab 6 08/14/2018 Active amitriptyline (ELAVIL) 10 MG tabletIndications:Ul cerative colitis without complications, unspecified location TAKE 2 TABS (20 MG TOTAL) BY MOUTH AT BEDTIME. 60 Tab 5 08/14/2018 Active sulfaSALAzine (AZULFIDINE) 500 MG tabletIndications:Ul cerative colitis without complications, unspecified location TAKE 2 TABS (1,000 MG TOTAL) BY MOUTH 3 TIMES A DAY. 180 Tab 5 08/14/2018 Active Additional Information Patient not taking.Reported on 03/21/2020 ergocalciferol (VITAMIN D) 1.25 MG (24957 UT) capsuleIndications:U lcerative colitis without complications, unspecified location Take 1 Cap (50,000 Units total) by mouth every 7 days. 4 Cap 1 07/15/2019 Active cyanocobalamin (VITAMIN B-12) 5000 MCG lozenge Take by mouth 1 time a day. Active Active Problems Problem Noted Date Diagnosed Date Referral of patient- Dr. Patton at [facility] 04/27/2020 Overview: Sw called pt due to being over due for a f/u apt. Patient reported that she transitioned to Dr. Patton at [facility] around a year ago and has already had 2-3 appointment with him. Sw will deactivate patient from active registry completing transition to adult care. 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 12/18/16 - TRACEY met with Pt, Mother, and Father during Pt's GI clinic visit with Dr. Blandon. Pt did not complete the electronic form of the Transition Readiness Assessment Questionnaire (TRAQ), as it has not been six months since her last assessment. Pt reported feeling confident in managing her care on her own and advised of no issues or barriers in continuing to do so. SW advised given that Pt has met all required self-management milestones, we will continue regular check-ins during clinic appts until transfer to adult GI care is appropriate. Pt advised, and Mother agreed, Pt needs to do a better job of getting used to talking on the phone when it comes to managing her health care. When asked, Pt advised this is due to both not enjoying talking on the phone and finding it somewhat annoying to make/take these kind of phone calls. SW advised, and Pt agreed, with the understanding that even though these phone calls might be an annoyance, they are an integral part of managing a chronic illness as an adult. Pt is in the 12th grade at [employer] this year. Pt reported no issues or pushback from the school re: attending class and/or missing homework/tests due to IBD symptoms, as Mother advised Pt has a [address]. Pt plans to attend [employer] next year. SW provided Pt with handout on IBD college scholarships. SW and family discussed decision and time frame for transfer to adult GI care, to which Pt advised she is planning for this in Fall 2017. 05/17/16 - TRACEY met with Pt and Father during Pt's GI clinic visit with Dr. Barakat. Pt did not complete the electronic form of the Transition Readiness Assessment Questionnaire (TRAQ), as it has not been six months since her last assessment. Pt reported feeling confident in managing most aspects of her care and advised of no barriers in continuing to do so. Pt is in the 11th grade at [employer] this year. Pt reported no issues in attending class and/or missing school work due to symptoms, as she has a [address] Pt confirmed she plans to attend [employer]. SW and family discussed decision and time frame for transfer to adult GI care and they advised they would like to transfer perhaps Summer 2017. 12/08/15 - TRACEY met with Pt and Mother during Pt's GI clinic visit with Dr. Barakat. Pt completed the electronic form of the Transition Readiness Assessment Questionnaire (TRAQ) for information and feedback on Pt's current level of mastery with self-management skills. (Please see the EPIC flowsheet for Pt's specific answers on the TRAQ form.) Pt reported having accomplished her self-management goal of scheduling appts on her own by scheduling Remicade appts, primary care appt and an appt with school staff for her 504 Plan. When asked, Pt also reported she already has Reena eBnitez RN, phone number saved in her phone. Other than Pt keeping a copy of her insurance card with her, family could not think of any new or additional self-management skills Pt needs to work on at this time, as she has already mastered the majority of them. Pt is in the 11th grade at [employer] this year. Pt reported no issues in attending class and/or missing school work due to symptoms, as she does have a [address]. When asked, Pt reported she most likely plans to attend [employer] for at least two years to minimize college tuition debt. SW provided the Going to College with IBD packet to assist Pt in the school selection process, accessing Disability Services, etc. SW discussed and reassured Pt and Mother that decision and time frame for transfer to adult GI care is determined by many factors (Pt's health, school plan, psychosocial circumstances, etc.), to which Pt reported no questions about right now. 05/26/15 - Pt completed the electronic form of the Transition Readiness Assessment Questionnaire (TRAQ) for information and feedback on Pt's current level of mastery with self-management skills.(Please see the EPIC flowsheet for Pt's specific answers on the TRAQ form.) SW out of the office and unable to make face to face contact with Pt. 11/18/14 - SW introduced self and explained role within Inflammatory Bowel Disease (IBD) Center and providing support, education and resources surrounding self-management skills and transition of care. SW provided family with the IBD Transition of Care welcome/information brochure which gives an overview of our Transition of Care initiative. Pt advised she is mature for her age and stated she is already responsible for her medications, in that she makes phone calls to the pharmacy for refills, keeps numbers for the pharmacy in her phone, etc. Pt also advised she keeps a calendar of her medical appts in her smartphone. Pt completed the electronic form of the Transition Readiness Assessment Questionnaire (TRAQ) for information and feedback on Pt's current level of mastery with self-management skills (please see the EPIC flowsheet for Pt's specific answers on the TRAQ form), which reflects Pt's statements of already having mastered some of these self- management tasks. When asked, Pt chose learning how to schedule clinic appts her self- management goal for this fall. SW and family discussed strategies to assist Pt in increasing her knowledge of the scheduling process, as well as providing opportunities to practice scheduling appts. Family receptive to this and advised they would be implementing these strategies. SW provided family with the IBD Self-Management Skill Checklist for general information on what will be expected for Pt to learn and practice of how to take care of herself. SW and family discussed strategies for the family to think about which involve Pt in the processes of managing her care. SW also provided Pt/family with the paper form of the TRAQ and the IBD Self-Management Handbook to assist in education and discussions going forward regarding Pt learning how to manage her care over the next few years, culminating in transfer to adult GI care at some point in the future. Family receptive to this and advised they would begin utilizing this education tool. Pt is set to the 10th grade at [employer] this fall. Pt reported no issues in attending class and/or missing school work due to symptoms, as Father reported Pt has a [address] TRACEY reminded Pt/family to bring the Self-Management Handbook to clinic visits in the future, as we will be continuing discussion and work on Pt's education in managing her disease. Ineffective self health management 11/18/2014 Overview: 11/18/14 - TRACEY introduced self and explained role within Inflammatory Bowel Disease (IBD) Center and providing support, education and resources surrounding self-management skills and transition of care. SW provided family with the IBD Transition of Care welcome/information brochure which gives an overview of our Transition of Care initiative. Pt advised she is mature for her age and stated she is already responsible for her medications, in that she makes phone calls to the pharmacy for refills, keeps numbers for the pharmacy in her phone, etc. Pt also advised she keeps a calendar of her medical appts in her smartphone. Pt completed the electronic form of the Transition Readiness Assessment Questionnaire (TRAQ) for information and feedback on Pt's current level of mastery with self-management skills (please see the EPIC flowsheet for Pt's specific answers on the TRAQ form), which reflects Pt's statements of already having mastered some of these self- management tasks. When asked, Pt chose learning how to schedule clinic appts her self- management goal for this fall. SW and family discussed strategies to assist Pt in increasing her knowledge of the scheduling process, as well as providing opportunities to practice scheduling appts. Family receptive to this and advised they would be implementing these strategies. TRAECY provided family with the IBD Self-Management Skill Checklist for general information on what will be expected for Pt to learn and practice of how to take care of herself. SW and family discussed strategies for the family to think about which involve Pt in the processes of managing her care. SW also provided Pt/family with the paper form of the TRAQ and the IBD Self-Management Handbook to assist in education and discussions going forward regarding Pt learning how to manage her care over the next few years, culminating in transfer to adult GI care at some point in the future. Family receptive to this and advised they would begin utilizing this education tool. Pt is set to the 10th grade at [employer] this fall. Pt reported no issues in attending class and/or missing school work due to symptoms, as Father reported Pt has a [address]. SW reminded Pt/family to bring the Self-Management Handbook to clinic visits in the future, as we will be continuing discussion and work on Pt's education in managing her disease. Psychic factors associated w ith diseases classified elsewhere 03/09/2013 Back pain 02/02/2013 Ulcerative colitis 07/17/2012 Immunizations Name Administration Dates Next Due DTaP Vaccine 10/10/2003, 0,04/18/1999,02/12,1998 HPV-4 (GARDASIL) 12/18/2012,06/16/2012, 2 Hepatitis B Vaccine - HISTOR ICAL USE ONLY 07/11/1999,04/18/1999,1998 Hib Vaccine 01/08/2000, 0,02/12/1999,12/06 Influenza Vaccine 0.5 mL - f or patients 6 months and older 01/15/2016,12/20/2014,01/20/2014,01/06,01/27/2012,01/19/2009 Measles/Mumps/Rubella Vaccine 10/10/2003, 000 Meningococcal Vaccine 10/01/2011 Pneumococcal 13 Conjugate 05/26/2015,05/2000,01/08/2000,10/09 Pneumococcal 23 Vaccine 05/17/2016 Pneumococcal Vaccine 12/08/2015 Polio Vaccine Inactivated 10/10/2003,,02/12/1999,12/06 Tdap vaccine 10/01/2011 Varicella Vaccine Live 11/27/2005,10/08/1999 Family History Medical History Relation Name Comments Abdominal Surgery in Childhood Father Anxiety Disorder Father Autoimmune Disease Father Bleeding Prob Father Lower GI bleed , Ischemic Colitis Depression Father Thyroid Disease Father Anxiety Disorder Mother Depression Mother Thyroid Disease Mother Relation Name Status Comments Father Mother Social History Tobacco Use Types Packs/Day Years Used Date Smoking Tobacco: Never Smokeless Tobacco: Never Alcohol Use Standard Drinks/Week Comments No 0 (1 standard drink = 0.6 oz pur e alcohol) Intimate Partner Violence Answer Date R ecorded If you are in a relationship , do you feel safe in that relationship? Yes 03/21/2020 If you are in a relationship , do you feel safe in that relationship? Not currently in a relationship 03/21/2020 Safety and Environment Answer Date Georges rded Do you have any concerns of physical abuse, sexual abuse, or neglect of your child? No 03/21/2020 Adult hurting you or family (11-18) Not on file 03/21/2020 Someone touched you in a sexual way? (11-18) Not on file 03/21/2020 Is someone hurting your or your family? No 03/21/2020 Historical abuse worry Not on file 0 If you have firearms in the home, are they all in locked storage AND unloaded? Not on file 03/21/2020 (RETIRED 01/2022) Guns In Home Not on file 1 05/22/2019 (RETIRED 01/2022) Guns Unloaded or Locked Away N ot on file 03/21/2020 Sex and Gender Information Value Date Recorded Sex Assigned at Not on file Gender Identity Not on file Sexual Orientation Not on file Last Filed Vital Signs Vital Sign Reading Time Taken Comments Blood Pressure 111/69 05/23/2019 5:27 PM EST Pulse 84 05/23/2019 5:27 PM EST Temperature 37 ??C (98.6 ??F) 05/23/2019 5:27 PM EST Respiratory Rate 22 05/23/2019 5:27 PM EST Oxygen Saturation 98% 07/28/2017 9:22 AM EDT Inhaled Oxygen Concentration - - Weight 69.9 kg (154 lb 1.6 oz) 05/23/2019 2:37 P M EST Height 166.8 cm (5' 5.67) 05/23/2019 2:37 PM ES T Body Mass Index 25.12 05/23/2019 2:37 PM EST Plan of Treatment Health Maintenance Due Date Last Done Comments DTAP/Tdap/Td IMMUNIZATION (7 - Td or Tdap) 09/30/2021 10/01/2011, 10/10/2003, 01/08/2000, Additional history exists AMB SEASONAL FLU VACCINE (#1) 12/14/2023 02/21/2020, 02/02/2020, 01/20/2019, Additional history exists COVID-19 Vaccine ( season) 2023 HEPATITIS B IMMUNIZATION Completed 000, 04/18/1999, 1998 HIB IMMUNIZATION Completed 01/08/2000, 08/1999, 02/12/1999, Additional history exists IPV IMMUNIZATION Completed 10/10/2003, , 02/12/1999, Additional history exists MMR IMMUNIZATION Completed 10/10/2003, 10/08/1999 VARICELLA IMMUNIZATION Completed 11/27/2005, 1999 HPV IMMUNIZATION Completed 12/18/2012, 08/2012, 01/27/2012 MCV4 IMMUNIZATION Completed 10/30/2015, 10/01/2011 PNEUMOCOCCAL IMMUNIZATION Completed 2016, 12/08/2015, 05/26/2015, Additional history exists Respiratory Syncytial Virus (RSV) <20mo Aged Out No longer eligible based on patient's age to complete this topic Care Teams Tableau Developer Relationship Specialty Start Date End Date No Pcp, [facility] PCP - General 11/02/18
--- OUTSIDE RECORDS SUMMARY | 2024-01-09 13:10 | XMS_ITS | Clinical Summary ---
Author Organization [employer] [facility] Address [place], [place] [address] Care Team Providers Care Revenue Audit Clerk Name Role Phone Pcp, No Primary Care Provider Unavailabl e Allergies No known active allergies Medications Medication Sig Dispensed Refills Start Date End Date Status acetaminophen 500 mg pwpk Mix 1 Tablet in liquid then take by mouth. Active biotin 1 mg cap Active Cranberry Extract 425 mg cap Take by mouth. Active fluticasone (50 mcg per actuation) nasal solution (FLONASE) Inhale into affected nostril(s). Active inFLIXimab (REMICADE) 100 mg injection Inject intravenous. Active MELATONIN ORAL Take by mouth. Active Lactobacillus acidophilus 0.5 mg (100 million cell) tab Take by mouth. Active polyethylene glycoL (Miralax) 17 gram/scoop powder Active multivitamins with minerals tablet Take 1 Tablet by mouth. Active NORETHINDRONE-E.ESTRAD IOL-IRON ORAL Take by mouth. Active cetirizine (ZYRTEC) 10 mg tablet Take 10 mg by mouth. Active cholecalciferol (VITAMIN D3) 1,000 unit tablet Take 1,000 units by mouth. Active DULoxetine (CYMBALTA) 60 mg Delayed-release capsule Take 60 mg by mouth once daily. 06/14/2022 Active ferrous sulfate, 65 mg elemental, tablet Take 325 mg by mouth. 05/25/2021 Active fluticasone (50 mcg per actuation) nasal solution (FLONASE) Active Methylprednisolone Sodium Succ 125 mg injection Inject 125 mg intravenous. Active omeprazole (PRILOSEC) 20 mg Delayed-Release capsule Take 20 mg by mouth. 05/30/2022 Active ondansetron (ZOFRAN ODT) 8 mg disintegrating tablet DISSOLVE 1 TABLET IN MOUTH EVERY EIGHT HOURS NEEDED FOR NAUSEA 03/27/2022 Active DULoxetine (CYMBALTA) 30 mg Delayed-release capsuleIndications:Anx iety,Depression, major, in remission (HC) Take 1 Capsule (30 mg) by mouth once daily. 90 Capsule 1 05/14/2023 Active amitriptyline (ELAVIL) 100 mg tabletIndications:Depr ession, recurrent (HC) Take 1 Tablet (100 mg) by mouth once daily. 90 Tablet 3 08/15/2023 Active Active Problems Problem Noted Date Diagnosed Date Low vitamin B12 level 12/03/2022 Overview (05/14/2023): Dx: 11/2022. B12 275. Takes MV with omeprazole. No n/t, CP, SOB. Last Assessment & Plan: Patient is going to try MV from omeprazole. Will recheck labs prior to follow up. 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 Rios. Didn't have good [...] using ibuprofen. Referral sent to a different labeling associate at this point for her to follow-up. Attention deficit hyperactivity disorder 022 Low ferritin 04/18/2021 Overview (05/14/2023): Interval HPI: Takes all of her medication [...] taking feosol consistently. Anxiety and depression 02/20/2021 Overview (05/14/2023): Interval HPI: Cymbalta 60mg daily is helping her mood and aches and pains. Has not needed ibuprofen. School is going well. She's a little behind from not understanding the syllabus correctly so she's playing catch up. She's doing 4H. Has moved to [place] for school. She has a medical single [...] nodosum 02/19/2021 Vitamin D deficiency 02/19/2021 Overview (05/14/2023): Diagnosed in the past. Taking 2000IU vit D daily. Last Assessment & Plan: Since patient has moved to [place], she would like to increase her vitamin D. Okay to double up to 4000 IU daily during winter. 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 About 2 years ago, received 2 infusions of pamidronate with a good response for bone swelling. Last Assessment & Plan: Will need to review further and discuss further at future office visit. Migraine with aura 07/14/2015 Iron deficiency anemia due to chronic blood loss 08/16/2011 Ulcerative colitis 06/25/2011 Overview (05/14/2023): Has been on Remicade from [facility] Dr. Patton for UC. Gets Remicade [...] Encounters Date Type Department Care Team Description 12/17/2023 9:00 AM CDT Office Visit [facility] [address] [place] [address] Linda Shah MD Physical (23 year old physical ); Ear Pain/problem (Follow up - double ear infection. ); Follow Up (Re-check for MRSA in her nose. ) 12/17/2023 Travel 12/15/2023 Travel from Last 3 Months Immunizations Name Administration Dates Next Due COVID-19 vaccine (Moderna 100mcg/0.5mL) PF, MDV 01/01/2021,08/07/2020,07/10/2020 COVID-19 vaccine (Moderna 50 mcg/0.5mL) 12YO+ BIVALENT PF, MDV 02/15/2023 DTaP 10/10/2003, 4,01/08/2000,01/07,04/18/1999,04/18/1999,02/12/1999 ,02/12/1999,1998,1998 Dtap Unspecified Formulation 10/10/2003, 01/08/2000,04/18/1999,02/12,1998 HIB PRP-OMP (PedvaxHIB) 01/08/2000,04/18,02/12/1999,12/06 HIB PRP-T (ActHIB,Hiberix) 01/08/2000,,02/12/1999,12/06 Hepatitis A (Adult) 08/01/2018,11/15/2017 Hepatitis B (Peds) 07/11/1999,04/18/1999, 999 Hepatitis B, Unspecified 07/11/1999,04/18/1999,0 1998 Hib Conjugate, Unspecified 01/08/2000,,02/12/1999,12/06 Human Papilloma Virus Vaccine 12/18/2012, 013,01/27/2012 Inactivated Polio Vaccine 10/10/2003,,02/12/1999,12/06 Influenza A (H1N1), Inactiva jennifer (Age 6-35 Mos) 02/08/2009 Influenza Virus, Unspecified 02/15/2023, 01/30/2023,02/19/2022,03/06,02/23/2017,01/15/2016,12/20/2014 ,01/20/2014,01/06/2013,01/27/2012,01/13,01/19/2009 Influenza, IIV4 02/15/2023 Influenza,LAIV3 Live Intrana andres (Flumist) 02/09/2016,02/01/2015,01/20/2014,01/08,01/27/2012,01/19/2009 MMR 10/10/2003,10/08/1999 Meningococcal Mcv4, Unspecif ied Formulation 10/01/2011 Meningococcal Vaccine (Menactra) 10/30/2015,09/12 Pneumococcal Poly,23-Valent (Pneumovax) 05/17/2016,12/08/2015 Pneumococcal conj 13-Valent (Prevnar 13) 05/26/2015,10/13/2000,01/08/2000,10/09 Pneumococcal conj 7-Valent (Prevnar 7) 1,01/08/2000,10/10/1999 Pneumococcal, Unspecified 12/08/2015 Tdap 04/22/2022,10/01/2011 Tuberculin Skin Test, Unspecified 07/25/2011 Varicella Vaccine 11/27/2005,10/08/1999 Social History Tobacco Use Types Packs/Day Years Used Date Smoking Tobacco: Never Smokeless Tobacco: Never Tobacco Cessation:Counseling Given: Yes Alcohol Use Standard Drinks/Week Comments Yes 0 (1 standard drink = 0.6 oz pur e alcohol) occ PHQ-2 Answer Date Recorded PHQ-2 TOTAL SCORE 2 08/15/2023 Social Connections Answer Date Recorded Frequency of [...] on file Sexual Orientation Not on file Travel History Travel Start Travel End [place] 09/08/2023 12/13/2023 Obstetrics History Last Filed Vital Signs Vital Sign Reading Time Taken Comments Blood Pressure 112/64 12/17/2023 8:51 AM CDT Pulse 86 12/17/2023 8:51 AM CDT Temperature - - Respiratory Rate - - Oxygen Saturation 99% 12/17/2023 8:51 AM CDT Inhaled Oxygen Concentration - - Weight 92.3 kg (203 lb 8 oz) 12/17/2023 8:51 AM CDT Height 166 cm (5' 5.35) 12/17/2023 8:51 AM CDT Body Mass Index 33.5 12/17/2023 8:51 AM CDT Plan of Treatment Health Maintenance Due Date Last Done Comments HIV for age 15-65 2013 Hepatitis C screening for ag e 18-79 2016 COVID-19 vaccine series (2023- season) 2023 02/15/2023, 02/15/2023, 04/09/2022, Additional history exists Influenza for age 9-49 12/14/2023 3, 02/15/2023, 01/30/2023, Additional history exists Depression screening for age 12+ 08/14/2024 08/15/19 24 BMI (ht and wt on same day) for age 18+ 12/16/2024 12/17/2023, 07/18/2023, 07/12/2022 Pap test for age 21-65 11/26/2026 4 ([facility]) Tetanus booster 04/22/2032 04/22/2022, 10/01/2011 HPV series for age 9-26 Completed 12/19/19 13, 06/16/2012, 01/27/2012 Pneumococcal series for age 6-64 Completed 05/17/2016, 12/08/2015, 12/08/2015, Additional history exists Tdap Completed 04/22/2022, 10/01/2011 Procedures Procedure Name Priority Date/Time Associated Diagnosis Comments VITAMIN B12 Routine 12/17/2023 9:28 AM CDT B12 deficiency from Last 3 Months Results * VITAMIN B12 (12/17/2023 9:28 AM CDT) VITAMIN B12 260 232 - 1,245 pg/mL 12/17/2023 5:29 PM CDT [facility] Blood BLOOD SPECIMEN / Unknown Butterfly / Unknown 12/17/2023 9:28 AM CDT 12/17/2023 9:28 AM CDT Narrative [facility] - 12/17/2023 5:29 PM CDT Biotin supplements may cause clinically significant interference for this test assay. ??If interference is suspected, it is strongly recommended that biotin is discontinued for at least one week prior to retesting. Linda Shah MD CHEMISTRY [facility] [address] [place] [address], from Last 3 Months Care Teams Revenue Audit Clerk Relationship Specialty Start Date End Date Pcp, No . PCP - General 06/10/22
--- OUTSIDE RECORDS SUMMARY | 2024-01-09 13:10 | XMS_ITS | Encounter Summary ---
Author Organization [facility] Address [address] [place] [address] Care Team Providers Care Hospital Manager Name Role Phone No Pcp, [facility] Primary Care Provider Unavailabl e Encounter Details Date Type Department Care Team (Late st Contact Info) Description 02/15/2013 Orders Only [facility] Division of Rheumatology [address] [place] [phone] Benny Amaro M.D. Rheumatology [address] [place], [place] [id number] [place] [address] Social History Tobacco Use Types Packs/Day Years Used Date Smoking Tobacco: Never Smokeless Tobacco: Never Alcohol Use Standard Drinks/Week Comments Not Asked 0 (1 standard drink = 0.6 oz pur e alcohol) Sex and Gender Information Value Date Recorded Sex Assigned at Not on file Gender Identity Not on file Sexual Orientation Not on file documented as of this encounter Plan of Treatment Not on file documented as of this encounter Visit Diagnoses Not on filedocumented in this encounter Care Teams Hospital Manager Relationship Specialty Start Date End Date No Pcp, [facility] PCP - General 11/02/18 documented as of this encounter
--- OUTSIDE RECORDS SUMMARY | 2024-01-09 13:10 | XMS_ITS | Encounter Summary ---
Author Organization [facility] [place] [address] Care Team Providers Care Pharmacy Specialist Name Role Phone Cheryl Rodríguez MD Primary Care Provider [phone] Reason for Referral * Consultation (Routine) - Closed Specialty Diagnoses / Procedures Referred By Contact Referred To Contact Ent-Otolaryngology / Otolaryngology Diagnoses Recurrent acute serous otitis media of right ear Dysfunction of both eustachian tubes Nilda Corley APRN [address] [place] [address] [facility] [address] [address] Referral ID Status Reason Start Date Expiration Date V isits Requested Visits Authorized [id number] Closed Specialty Services Required 11/19/2023 11/07/2024 1 1 Reason for Visit * Reason Comments Ear Fullness Ear Pain Tinnitis Encounter Details Date Type Department Care Team (Late st Contact Info) Description 11/19/2023 5:20 PM EDT Office Visit [facility] [address] [place] [address] Nilda Corley APRN [address], [place] [id number] Dysfunction of both eustachian tubes (Primary Dx); Recurrent acute serous otitis media of right ear Social History Tobacco Use Types Packs/Day Years [...] Sign Reading Time Taken Comments Blood Pressure 128/86 11/19/2023 4:57 PM EDT Pulse 96 11/19/2023 4:57 PM EDT Temperature 37.1 ??C (98.8 ??F) 11/19/2023 4:57 PM ED T Respiratory Rate - - Oxygen Saturation 97% 11/19/2023 4:57 PM EDT Inhaled Oxygen Concentration - - Weight 90.7 kg (200 lb) 11/19/2023 4:57 PM EDT Height 165.1 cm (5' 5) 11/19/2023 4:57 PM EDT Body Mass Index 33.28 11/19/2023 4:57 PM EDT documented in this encounter Patient Instructions * Attachments The following attachments cannot be sent through Care Everywhere. * Otitis Media ([place]risian) documented in this encounter Progress Notes * Nilda Corley APRN - 11/19/2023 5:20 PM EDT Assessment/Plan ICD-10-CM ICD-9-CM 1. Dysfunction of both eustachian tubes H69.93 381.81 CONSULT TO ENT predniSONE 20 mg tablet DISCONTINUED: predniSONE 20 mg tablet 2. Recurrent acute serous otitis media of right ear H65.04 381.01 CONSULT TO ENT Patient arrives with continued complaint of right ear pain despite the use of antibiotics. Was originally seen on 11/11/2023 and placed on amoxicillin. She was seen again on 12/12/2023, during that visit she was told to discontinue amoxicillin and start Augmentin. She currently has 6 days left of Augmentin. States pain and tinnitus have began to worsen. Upon physical examination there is tendernessof the right ear as well as erythema and bulging of the TM. There is some clear fluid seen behind the left TM. Patient will be given prednisone taper for eustachian tube inflammation and swelling. Given ENT consults for reoccurrence otitis media. Instructed to continue Augmentin until completion and be reevaluated as needed. She verbalizes understanding and agrees to today's plan of care. Patient is in agreement to seek ER care for life-threatening symptoms and follow-up with PCP as needed. Patient is advised of additional OTC medications and supportive measures for continued relief of symptoms. I do recommend follow- up as needed. Patient is appropriate for discharge to home as there is no emergent condition nor need for escalation of care at this time. Treatment plan was discussed with the patient in detail and they voiced understanding and agreement with it as stated in the assessment and plan section of this note. Patient discharged from urgent care to home in stable condition without noted toxic or distressed appearance. RTO PRN or next scheduled appt Subjective Ear Fullness, Ear Pain, and Tinnitis Nursing Notes: Sarah Montiel 11/19/23 1700 Signed Pt states right ear fullness, pain and ringing x5 days. On ABT and OTC with no good results. Statesnausea and GI discomfort from current ABT. HPI Patient arrives to clinic with continued complaint of right ear fullness, pain, tinnitus x 5 days despite the use of antibiotic use. Earache There is pain in the right ear. The current episode started in the past 7 days. The problem occurs constantly. The problem has been unchanged. There has been no fever. The pain is mild. Pertinent negatives include no abdominal pain, coughing, diarrhea, ear discharge, headaches, hearing loss, neck pain, rash, rhinorrhea, sore throat or vomiting. She has tried antibiotics for the symptoms. The treatment provided mild relief. Objective Review of Systems Constitutional: Negative for chills, fatigue and fever. HENT: Positive for ear pain. Negative for congestion, ear discharge, hearing loss, rhinorrhea and sore throat. Respiratory: Negative for cough. Gastrointestinal: Negative for abdominal pain, diarrhea and vomiting. Musculoskeletal: Negative for neck pain. Skin: Negative for rash. Neurological: Negative for light-headedness and headaches. Visit Vitals BP 128/86 (Site: Right arm) Pulse 96 Temp 98.8 ??F (37.1 ??C) (Oral) Ht 1.651 m (5' 5) Wt 90.7 kg (200 lb) SpO2 97% BMI 33.28 kg/m?? OB Status Having periods BSA 2.04 m?? Physical Exam Vitals and nursing note reviewed. Constitutional: General: She is not in acute distress. Appearance: Normal appearance. She is normal weight. She is not ill-appearing. HENT: Right Ear: Ear canal and external ear normal. Tenderness present. There is no impacted cerumen. Tympanic membrane is erythematous and bulging. Left Ear: Tympanic membrane, ear canal and external ear normal. No tenderness. There is no impactedcerumen. Tympanic membrane is not erythematous or bulging. Nose: Nose normal. No congestion or rhinorrhea. Mouth/Throat: Mouth: Mucous membranes are moist. Pharynx: Oropharynx is clear. No oropharyngeal exudate or posterior oropharyngeal erythema. Cardiovascular: Rate and Rhythm: Normal rate. Pulses: Normal pulses. Pulmonary: Effort: Pulmonary effort is normal. Musculoskeletal: Cervical back: Normal range of motion and neck supple. No tenderness. Lymphadenopathy: Cervical: No cervical adenopathy. Skin: General: Skin is warm and dry. Capillary Refill: Capillary refill takes less than 2 seconds. Neurological: General: No focal deficit present. Mental Status: She is alert and oriented to person, place, and time. Psychiatric: Mood and Affect: Mood normal. Behavior: Behavior normal. Nursing notes and vital signs documented and reviewed. Procedures No orders to display No results found for this visit on 11/19/23. Allergies Meds Med Hx Surg Hx Fam Hx documented in this encounter Nursing Notes * Sarah Montiel - 11/19/2023 5:20 PM EDT Pt states right ear fullness, pain and ringing x5 days. On ABT and OTC with no good results. Statesnausea and GI discomfort from current ABT. documented in this encounter Plan of Treatment Scheduled Referrals Name Type Priority Associated Diagnoses Orde r Schedule CONSULT TO ENT Outpatient Referral Routine Recurrent acute serous otitis media of right ear Dysfunction of both eustachian tubes Ordered: 11/19/2023 documented as of this encounter Visit Diagnoses Diagnosis Dysfunction of both eustachian tubes- Primary Dysfunction of Eustachian tube Recurrent acute serous otitis media of right ear Acute serous otitis media documented in this encounter Additional Health Concerns Assessment Noted Time A Body Mass Index follow-up plan has been documented for the patient 01/22/2022 10:09 AM EDT documented as of this encounter Care Teams Pharmacy Specialist Relationship Specialty Start Date End Date Cheryl Rodríguez MD [address] [facility] [address] [place] [address] PCP - General Family Practice 09/27/22 documented as of this encounter
--- OUTSIDE RECORDS SUMMARY | 2024-01-09 13:10 | XMS_ITS | Encounter Summary ---
Author Organization [facility] Address [address] [place] [address] Care Team Providers Care Business Solution Analyst Name Role Phone No Pcp, [facility] Primary Care Provider Unavailabl e Reason for Visit * Reason Onset Date Comments Medication Refill 03/29/2019 Vit D Ergocalf igerol 1.25mg Encounter Details Date Type Department Care Team (Late st Contact Info) Description 03/29/2019 Refill [facility] Division of Gastroenterology [address] [place] [id number] Mari Sprague M.D. Gastroenterology & Nutrition [address] [place] [address] [address] [place] [address] Medication Refill (Vit D Ergocalfigerol 1.25mg) Social History Tobacco Use Types Packs/Day Years Used Date Smoking Tobacco: Never Smokeless Tobacco: Never Alcohol Use Standard Drinks/Week Comments No 0 (1 standard drink = 0.6 oz pur e alcohol) Sex and Gender Information Value Date Recorded Sex Assigned at Not on file Gender Identity Not on file Sexual Orientation Not on file documented as of this encounter Miscellaneous Notes * Telephone Encounter - Ronda Blandon M.D. - 03/29/2019 3:35 PM EST Can decrease to once every 28 days now. Please let Patricia know. KSB * Telephone Encounter - Alda Cohn, Hay Stacker Operator - 03/29/2019 2:03 PM EST Last GI appt? 10/12/18 Due for next GI appt? No If appt needed, make contact with family to make appt. Last drug/vitamin level; if applicable (ex. VitD,Adalimumab level, etc.): last labs 03/28/19 Has the dose/plan changed since last fill/office visit? No Correct dose, pharmacy, practitioner & department confirmed? (ex.not aero/ IFT pt) : yes Was the request already sent to the pharmacy? If yes, do not send to practitioner, resolve with pharmacy. documented in this encounter Plan of Treatment Not on file documented as of this encounter Visit Diagnoses Diagnosis Ulcerative colitis without complications, unspecified location documented in this encounter Care Teams Business Solution Analyst Relationship Specialty Start Date End Date No Pcp, [facility] PCP - General 11/02/18 documented as of this encounter
--- OUTSIDE RECORDS SUMMARY | 2024-01-09 13:10 | XMS_ITS | Encounter Summary ---
Author Organization [facility] Address [address] [place] [address] Care Team Providers Care Storeroom Supervisor Name Role Phone Cheryl Rodríguez MD Primary Care Provider [phone] Cheryl Rodríguez MD Primary Care Provider [phone] Cheryl Rodríguez MD Primary Care Provider [phone] Cheryl Rodríguez MD Primary Care Provider [phone] Encounter Details Date Type Department Care Team (Late st Contact Info) Description 09/28/2021 Documentation Only [facility] [address] [place] [address] Social History Tobacco Use Types Packs/Day Years [...] Associated Diagnosis Comments AMB CORRESPONDENCE (SCANNED DOCUMENT) 10/25/2021 9:26 AM EDT AMB CORRESPONDENCE (SCANNED DOCUMENT) 09/28/2021 12:55 PM EDT documented in this encounter Results * AMB CORRESPONDENCE (SCANNED DOCUMENT) (10/25/2021 9:26 AM EDT) Narrative 10/25/2021 9:26 AM EDT Ordered by an unspecified provider. Scan Provider SCANNED DOCUMENTS * AMB CORRESPONDENCE (SCANNED DOCUMENT) (09/28/2021 12:55 PM EDT) Narrative Verónica Albarado CMA - 09/28/2021 12:55 PM EDT Ordered by an unspecified provider. Scan Provider SCANNED DOCUMENTS documented in this encounter Visit Diagnoses Not on filedocumented in this encounter Care Teams Storeroom Supervisor Relationship Specialty Start Date End Date Cheryl Rodríguez MD [address] [facility] [address] [place] [address] PCP - General Family Medicine 02/20/21 12/02/21 Cheryl Rodríguez MD [address] [facility] [address] [place] [address] PCP - General Family Medicine 12/03/21 02/24/22 Cheryl Rodríguez MD [address] [facility] [address] [place] [address] PCP - General Family Medicine 02/25/22 08/21/23 Cheryl Rodríguez MD [address] [facility] [address] [place] [address] PCP - General Family Medicine 10/25/23 documented as of this encounter
--- OUTSIDE RECORDS SUMMARY | 2024-01-09 13:10 | XMS_ITS | Encounter Summary ---
Author Organization [facility] Address [address] [place] [address] Care Team Providers Care Outside Plant Field Engineer Name Role Phone No Pcp, [facility] Primary Care Provider Unavailabl e Encounter Details Date Type Department Care Team (Late st Contact Info) Description 12/06/2013 Abstract [facility] Division of Gastroenterology, Hepatology & Nutrition [address] [place] [phone] Associate Account Manager, [facility] Social History Tobacco Use Types Packs/Day Years [...] on filedocumented in this encounter Care Teams Outside Plant Field Engineer Relationship Specialty Start Date End Date No Pcp [facility] PCP - General 11/02/18 documented as of this encounter
--- OUTSIDE RECORDS SUMMARY | 2024-01-09 13:10 | XMS_ITS | Encounter Summary ---
Author Organization [facility] Address [address] [place] [address] Care Team Providers Care Board Mill Supervisor Name Role Phone Cheryl Rodríguez MD Primary Care Provider [phone] Cheryl Rodríguez MD Primary Care Provider [phone] Cheryl Rodríguez MD Primary Care Provider [phone] Cheryl Rodríguez MD Primary Care Provider [phone] Encounter Details Date Type Department Care Team (Late st Contact Info) Description 06/26/[address] [facility] [address] [place] [address] Social History Tobacco Use Types Packs/Day Years [...] on filedocumented in this encounter Care Teams Board Mill Supervisor Relationship Specialty Start Date End Date Cheryl Rodríguez MD [address] [facility] [address] [place] [address] PCP - General Family Medicine 02/20/21 12/02/21 Cheryl Rodríguez MD [address] [facility] [address] [place] [address] PCP - General Family Medicine 12/03/21 02/24/22 Cheryl Rodríguez MD [address] [place] [address] PCP - General Family Medicine 02/25/22 08/21/23 Cheryl Rodríguez MD [address] [place] [address] PCP - General Family Medicine 10/25/23 documented as of this encounter
--- OUTSIDE RECORDS SUMMARY | 2024-01-09 13:10 | XMS_ITS | Clinical Summary ---
Author Organization [facility] [place] [address] Care Team Providers Care Dry Color Mixer Name Role Phone Cheryl Rodríguez MD Primary Care Provider [phone] Allergies No known active allergies Medications Medication Sig Dispensed Refills Start Date End Date Status cetirizine (ZYRTEC) 10 mg tablet Take 10 mg by mouth Act josselin inFLIXimab (REMICADE) 100 mg intravenous recon solution Give 10 mg/kg/dose intravenously Active FEROSUL 325 mg (65 mg iron) tablet TAKE 1 TABLET BY MOUTH EVERY DAY 12/20/2021 Active omeprazole (PRILOSEC) [address]-capsule TAKE 1 CAPSULE BY MOUTH EVERY DAY 30 MINUTES TO 1 HOUR BEFORE A MEAL 01/18/2022 Active amitriptyline (ELAVIL) 50 mg tablet TAKE 1 TABLET BY MOUTH EVERY DAY 12/22/2021 Active DULoxetine (IRENKA) 40 mg capsule TAKE 1 CAPSULE BY MOUTH EVERY DAY 10/28/2021 Active cholecalciferol (VITAMIN D3) 25 mcg (1,000 unit) tablet Take 1,000 Units by mouth Active norethindrone-e.est radiol-iron (JUNE FE 24 ORAL) Take by mouth Active fluticasone propionate (FLONASE) 50 mcg/actuation nasal spray 2 Sprays by Each Nostril route daily Active mupirocin (BACTROBAN) 2 % topical ointmentIndications :Complication of left ear piercing, initial encounter,Celluliti s of head except face Apply three times a day 22 g 09/27/2022 Active Active Problems No known active problems Encounters Date Type Department Care Team Description 11/19/2023 5:20 PM EDT Office Visit [facility] [address] [place] [id number] Werstler, Nilda A, BOND WRITER Dysfunction of both eustachian tubes (Primary Dx); Recurrent acute serous otitis media of right ear 11/19/2023 Travel 11/11/2023 3:30 PM EDT Office Visit [facility] [address] [place] [address] Maricarmen Booth, BOND WRITER Non-recurrent acute serous otitis media of both ears (Primary Dx); Sore throat 11/11/2023 Travel from Last 3 Months Immunizations Name Administration Dates Next Due DTaP (Pediatric Vaccine) 10/10/2003,12/14,04/18/1999,02/12,1998 DTaP, unspecified formulation 10/10/2003 ,01/08/2000,04/18/1999,02/12,1998 HPV Vaccine - Quadrivalent 12/18/2012,06/16/2012 ,01/27/2012 Haemophilus influenzae type b vaccine, PRP-OMP conjugate 01/08/2000,04/18/1999,02/12/1999,12/06 Haemophilus influenzae type b vaccine, PRP-T conjugate 01/08/2000,04/18/1999,02/12/1999,12/06 Haemophilus influenzae type b vaccine, conjugate unspecified formulation 01/08/2000,04/18/1999,02/12/1999,12/06 Hepatitis A Vaccine, Adult 08/01/2018,11/15/2017 Hepatitis B vaccine, pediatr ic or pediatric/adolescent (3 dose) 07/11/1999,04/18/1999,1998 Hepatitis B vaccine, unspeci fied formulation 07/11/1999,04/18/1999,1998 Influenza Virus Vaccine, Uns pecified Formulation 01/15/2016,12/20/2014,01/20/2014,01/06,01/27/2012,02/08/2009,01/19/2009 Influenza virus vaccine, yakelin e, attenuated, for intranasal use 02/09/2016,02/01/2015,01/20/2014,01/08,01/27/2012,01/19/2009 Influenza, Seasonal, Injectable 01/15/2016,12/20,01/06/2013 Influenza, Seasonal, Injecta ble, Preservative Free 02/23/2017,02/09/2016,02/01/2015,01/20,01/08/2013,01/27/2012,01/19/2009 Influenza, injectable, quadr ivalent, Preservative Free 02/21/2020,02/22/2018,01/15/2016,12/20,01/20/2014,01/06/2013,01/27/2012 ,01/19/2009 Influenza, injectable, quadr ivalent, contains preservative 03/06/2019 Influenza, recombinant, quadrivalent,injectable, preservative free 03/14/2021 Measles, Mumps and Rubella v irus vaccine 10/10/2003,10/08/1999 Meningococcal Polysaccharide (groups A, C, Y and W-135) Diphtheria Toxoid Conjugate vaccine (MCV4P) 10/30/2015,10/01/2011 Meningococcal, MCV4, unspeci fied conjugate formulation(groups A, C, Y and W-135) 10/01/2011 Moderna Sars-cov-2 Vaccination 01/01/2021,2020,07/10/2020 Novel [id number], Preservative-free 02/08/2009 Pneumococcal Conjugate vacci ne, 13 valent 05/26/2015,10/13/2000,01/08/2000,10/09 Pneumococcal Conjugate vacci ne, 7 valent 10/13/2000,01/08/2000,10/10/1999 Pneumococcal Polysaccharide vaccine, 23 valent 05/17/2016,12/08/2015 Pneumococcal, Unspecified Formulation 12/08/2015 Poliovirus Vaccine, Inactivated (IPV) ,01/08/2000,02/12/1999,12/06 TDaP 10/01/2011 Varicella Vaccine 11/27/2005,10/08/1999 Social History Tobacco Use Types Packs/Day Years Used Date Smoking Tobacco: Never Assessed Sex and Gender Information Value Date Recorded Sex Assigned at Female 12/04/2021 3:44 PM EDT Gender Identity Female 12/04/2021 3:44 PM EDT Sexual Orientation Not on file Job Start Date Occupation Industry Not on file Not on file Not on file Last Filed Vital Signs Vital Sign Reading Time Taken Comments Blood Pressure 128/86 11/19/2023 4:57 PM EDT Pulse 96 11/19/2023 4:57 PM EDT Temperature 37.1 ??C (98.8 ??F) 11/19/2023 4:57 PM ED T Respiratory Rate 16 09/27/2022 6:14 PM EDT Oxygen Saturation 97% 11/19/2023 4:57 PM EDT Inhaled Oxygen Concentration - - Weight 90.7 kg (200 lb) 11/19/2023 4:57 PM EDT Height 165.1 cm (5' 5) 11/19/2023 4:57 PM EDT Body Mass Index 33.28 11/19/2023 4:57 PM EDT Plan of Treatment Health Maintenance Due Date Last Done Comments HIV Screening 2013 Hepatitis C Screening 2016 Cervical Cancer Screening 10/08/2019 Pap Smear 10/08/2019 DTaP/Tdap/Td Vaccines (7 - Td or Tdap) 09/30/2021 10/01/2011, 10/10/2003, 10/10/2003, Additional history exists Co-Test / HPV 10/08/2023 Influenza Vaccines 11/13/2023 02/15/2023, 1 , 02/19/2022, Additional history exists COVID-19 Vaccines ( season) 2023 02/15/2023, 04/09/2022, 01/01/2021, Additional history exists Hepatitis B Vaccines Completed 07/11/1999, 07/11/1999, 04/18/1999, Additional history exists HIB Vaccines Completed 01/08/2000, 12/14, 01/08/2000, Additional history exists HISTORICAL VIEW: MMR Vaccines Discontinued 10/10/2003, 10/08/1999 IPV Vaccines Completed 10/10/2003, 12/14, 02/12/1999, Additional history exists HISTORICAL VIEW: Varicella Vaccines Discontinued 11/27/2005, 10/08/1999 HPV Vaccines Completed 12/18/2012, 03/0 08/2012, 01/27/2012 Meningococcal Vaccines Completed 6, 10/01/2011, 10/01/2011 Pneumococcal Vaccines: Pediatrics (0 to 5 Years) and At-Risk Patients (6 to 64 Years) Completed 05/17/2016, 12/08/2015, 12/08/2015, Additional history exists Hepatitis A Vaccines Aged Out 08/01/2018, 11/16/19 18 No longer eligible based on patient's age to complete this topic Rotavirus Vaccines Aged Out No longer eligible based on patient's age to complete this topic Procedures Procedure Name Priority Date/Time Associated Diagnosis Comments CULTURE, THROAT Routine 11/11/2023 3:53 PM EDT Sore throat POC RAPID STREP Routine 11/11/2023 Sore throat from Last 3 Months Results * (ABNORMAL) CULTURE, THROAT (11/11/2023 3:53 PM EDT) TYPE DESCRIPTION THROAT COM [facility] SOURCE DESCRIPTION THROAT [facility] CULTURE BETA STREPTOCOC CI, NOT GROUP A(A) [facility] Swab. (Throat.) 11/11/2023 3 :53 PM EDT 11/11/2023 11:39 PM EDT Maricarmen Booth APRN MICROBIOLOGY ORDERS [facility] [address] [place] [address], * POC RAPID STREP (11/11/2023) RAPID STREP (POC) neg Swab. (Throat.) 11/11/2023 Maricarmen Booth APRN POC TESTING from Last 3 Months Care Teams Dry Color Mixer Relationship Specialty Start Date End Date Cheryl Rodríguez MD [address] [place] [address] PCP - General Family Practice 09/27/22
--- OUTSIDE RECORDS SUMMARY | 2024-01-09 13:10 | XMS_ITS | Encounter Summary ---
Author Organization [facility] Address [address] [place] [address] Care Team Providers Care Financial Institution Branch Manager Name Role Phone No Pcp, [facility] Primary Care Provider Unavailabl e Encounter Details Date Type Department Care Team (Late st Contact Info) Description 10/19/2019 Abstract [facility] Division of Gastroenterology, Hepatology & Nutrition [address] [place] [phone] Teachers' Assistant, [facility] Social History Tobacco Use Types [...] on filedocumented in this encounter Care Teams Financial Institution Branch Manager Relationship Specialty Start Date End Date No Pcp [facility] PCP - General 11/02/18 documented as of this encounter
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
[2024-01-09] MEDS: MORPHINE 4 MG/ML INJ IVP (13:31)
[2024-01-09 13:39] LABS: Basophils Absolute Auto 0.03 K/uL (0.00-0.30); Basophils Percent Auto 0.4 % (0.0-3.0); Eosinophils Absolute Auto 0.14 K/uL (0.00-0.50); Eosinophils Percent Auto 1.7 % (0.0-7.0); Hematocrit 44.9 % (33.0-51.0); Hemoglobin* 14.8 gm/dL (12.0-16.0); Immature Granulocytes Abs Auto 0.02 K/uL (0.00-0.30); Immature Granulocytes Pct Auto 0.2 %; Lymphocytes Absolute Auto 2.85 K/uL (0.90-2.90); Lymphocytes Percent Auto 35.2 % (20-44); Mean Corpuscular HGB Conc 33 gm/dL (32-36); Mean Corpuscular Hemoglobin 29 pg (26-34); Mean Corpuscular Volume 89 fL (80-100); Monocytes Percent Auto 5.7 % (0.0-11.0); Neutrophils Absolute Auto 4.59 K/uL (1.7-7.0); Neutrophils Percent Auto 56.8 % (42.0-72.0); Platelet Count* 242 K/uL (140-440); RDW Coefficient of Variation % 12.6 % (11.5-15.5); Red Blood Count 5.07 m/uL (4.00-5.20); White Blood Count* 8.09 K/uL (4.50-11.00)
[2024-01-09 13:53] LABS: Slide Review Reflex No
[2024-01-09 14:11] LABS: PCR FLU A Negative PCR FLU A (Negative); PCR FLU B Negative PCR FLU B (Negative); SARS PCR* Negative SARS-CoV-2 (Negative)
[2024-01-09 14:20] LABS: HCG Qualitative Serum* Negative (Negative)
--- NOTE | 2024-01-09 14:53 | CRLHL7_ITS ---
For Patients: As a result of the 21st Century Cures Act, medical imaging exams and procedure reports are released immediately into your electronic medical record. You may view this report before your referring provider. If you have questions, please contact your health care provider. Indication: Shortness of breath Technique: CTA chest, pulmonary embolism protocol, utilizing 95 mL Isovue 370 Comparison: None Findings: No appreciable thyroid nodules. No pathologically enlarged lymph nodes throughout the thorax. Likely residual thymic tissue in the anterior mediastinum. Mild cardiomegaly. No CT evidence of right heart strain. No pericardial effusion. The thoracic aorta and pulmonary artery are within normal limits in caliber. Examination of the pulmonary arteries is somewhat limited secondary to contrast bolus timing. No central pulmonary embolism. Regions of decreased attenuation in the distal segmental and subsegmental pulmonary arteries of the lower lobes are favored to represent contrast mixing artifact, and less likely small PEs. No focal airspace consolidation, pleural effusion, or pneumothorax. Mild linear atelectatic changes seen in the lung bases. There are 3 solid pulmonary nodules in the right upper lobe measuring up to approximately 8 millimeters. The visualized upper abdomen is without acute process. Moderate volume hiatal hernia. The osseous structures are without acute abnormality. Remote superior endplate compression deformity, asymmetric to the left, of the T12 vertebral body (series number 6, image 141). Impression: 1. Examination of the pulmonary arteries is somewhat limited secondary to contrast bolus timing. No central pulmonary embolism. Regions of decreased attenuation in the distal segmental and subsegmental pulmonary arteries of the lower lobes are favored to represent contrast mixing artifact, and much less likely small PEs, although small PEs can not entirely be excluded. 2. Solid pulmonary nodules in the right upper lobe measuring up to [address] chest in 3-6 months. Please note that all CT scans at this facility use dose modulation, iterative reconstruction, and/or weight-based dosing when appropriate to reduce radiation dose to as low as reasonably achievable. Dictated by Magdi Aponte MD @ 01/09/2024 4:04:35 PM (Electronically Signed)
[2024-01-09] MEDS: ONDANSETRON 2 MG/ML inj 4 MG IVP (15:06)
[2024-01-09 15:10] LABS: Chloride* 105 mmol/L (96-114)
[2024-01-09 15:11] LABS: Sodium* 136 mmol/L (135-149)
[2024-01-09 15:13] LABS: Creatinine* 0.7 mg/dL (0.5-1.5); Est. Creatinine Clearance* 110.55; Estimated Glomerular Filt Rate 123 ml/min
[2024-01-09 15:14] LABS: Blood Urea Nitrogen* 12 mg/dL (5-24); Calcium* 9.2 mg/dL (8.4-10.6); Glucose* 88 mg/dL (60-115); Magnesium* 2.1 mg/dL (1.5-2.6)
[2024-01-09 15:30] LABS: Anion Gap 11 mEq/L (7-15); Carbon Dioxide* 20 mmol/L (20-32)
[2024-01-09 16:00] VITALS: PULSE 106; O2SAT 100
[2024-01-09 16:15] VITALS: PULSE 97; O2SAT 99
== END 2024-01-09 16:27 | disposition home or self-care (01) ==
PROVIDERS: Emergency Provider Student in an Organized Health Care Education/Training Program; PCP Student in an Organized Health Care Education/Training Program
DX: M79.662 Pain in left lower leg (principal)
CPT/HCPCS: 36415; 71275; 80048; 83735; 84484; 84703; 85025; 85379; 87631; 93005; 93971; 96374; 96375; 99283; 99284; 99285; J2270; J2405; Q9967

== ENCOUNTER 2024-07-06 08:00 | Outpatient (RCR) | payer BC, SELFPAY ==
[2024-02-19 09:15] VITALS: BP 106/76; PULSE 103; RESP 16; TEMP 35.9; O2SAT 96
[2024-02-19] MEDS: METHYLPREDNISOLONE SOD SUCC 62.5 MG/ML (125) 60 MG IVP (09:59)
[2024-05-18 08:48] VITALS: BP 125/86; PULSE 104; RESP 17; TEMP 37; O2SAT 96
[2024-05-18] MEDS: METHYLPREDNISOLONE SOD SUCC 62.5 MG/ML (125) 60 MG IVP (09:21)
[2024-05-18] MEDS: SODIUM CHLORIDE 0.9 % (FLUSH) 10 ML SYRINGE IVF (09:21)
[2024-07-06 08:03] LABS: Basophils Absolute Auto 0.05 K/uL (0.00-0.30); Basophils Percent Auto 0.7 % (0.0-3.0); Eosinophils Absolute Auto 0.17 K/uL (0.00-0.50); Eosinophils Percent Auto 2.5 % (0.0-7.0); Hematocrit* 44.5 % (33.0-51.0); Hemoglobin* 14.7 gm/dL (12.0-16.0); Immature Granulocytes Abs Auto 0.04 K/uL (0.00-0.30); Immature Granulocytes Pct Auto 0.6 %; Lymphocytes Absolute Auto 2.04 K/uL (0.90-2.90); Lymphocytes Percent Auto 30.5 % (20-44); Mean Corpuscular HGB Conc 33 gm/dL (32-36); Mean Corpuscular Hemoglobin 29 pg (26-34); Mean Corpuscular Volume 87 fL (80-100); Monocytes Percent Auto 8.8 % (0.0-11.0); Neutrophils Percent Auto 56.9 % (42.0-72.0); Platelet Count* 254 K/uL (140-440); RDW Coefficient of Variation % 13.1 % (11.5-15.5); Red Blood Count* 5.11 m/uL (4.00-5.20); White Blood Count* 6.69 K/uL (4.50-11.00)
[2024-07-06 08:04] VITALS: BP 112/81; PULSE 105; RESP 18; TEMP 36.6; O2SAT 96
[2024-07-06 08:05] LABS: Slide Review Reflex No
[2024-07-06 08:14] LABS: Albumin* 4.4 g/dL (3.3-5.0); Chloride* 106 mmol/L (96-114); Potassium* 3.6 mmol/L (3.6-5.1); Sodium* 138 mmol/L (135-149)
[2024-07-06 08:17] LABS: Alanine Aminotransferase* 13 U/L (4-35); Alkaline Phosphatase* 95 U/L (40-150); Anion Gap 10 mEq/L (7-15); Aspartate Amino Transferase* 22 U/L (12-35); Bilirubin Total* 0.7 mg/dL (0.1-1.5); Blood Urea Nitrogen* 7 mg/dL (5-24); Carbon Dioxide* 22 mmol/L (20-32); Creatinine* 0.7 mg/dL (0.5-1.5); Estimated Glomerular Filt Rate 123 ml/min; Total Protein* 7.7 g/dL (6.0-8.3)
[2024-07-06 08:18] LABS: Calcium* 8.9 mg/dL (8.4-10.6); Glucose* 107 mg/dL (60-115)
[2024-07-06] MEDS: SODIUM CHLORIDE 0.9 % (FLUSH) 10 ML SYRINGE IVF (08:25)
[2024-07-06] MEDS: METHYLPREDNISOLONE SOD SUCC 62.5 MG/ML (125) 60 MG IVP (08:26)
[2024-07-06 08:35] LABS: C Reactive Protein* < 0.5 mg/dL (0.5-1.0)
== END 2024-08-17 23:59 | disposition home or self-care (01) ==
LOC: CCIC 08:00
PROVIDERS: PCP Student in an Organized Health Care Education/Training Program; Referring Provider Student in an Organized Health Care Education/Training Program; Visit Provider Clinical Nurse Specialist
DX: K51.90 Ulcerative colitis, unspecified, without complications (principal)
CPT/HCPCS: 36415; 80053; 85025; 86140; 96375; 96376; 96413; 96415; J1745; J2919; J7050